=== PATIENT | female | born 1940 | race Caucasian/White ===

== ENCOUNTER 2016-10-08 18:06 | Inpatient (IN) | payer MEDICARE, MEDICAID ==
--- NOTE | 2016-10-08 18:18 | ED Physician Chart ---
Chief Complaint/HPI - Patient Information Date Seen:: 10/08/16 Time Seen:: 18:14 Chief Complaint:: poor feeding History of Present Illness:: pt sent from [facility] for poor feeding x last week and freq complaints of abd pain. no known n/v/d. pt is poor historian due to janes. no know fever. not getting out of bed as much as usual. Historian:: Patient, Medical Records Review:: Transfer documents Reviewed Review of Systems - Review of Systems General/Constitutional: No fever, No chills, No weight loss, No weakness, No diaphoresis, No edema, No loss of appetite, Other (poor historian limits hx ) Skin: No skin lesions, No rash, No bruising Head: No headache, No light-headedness Eyes: No loss of vision, No pain, No diplopia ENT: No earache, No nasal drainage, No sore throat, No tinnitus Neck: No neck pain, No swelling, No thyromegaly, No stiffness, No mass noted Cardio Vascular: No chest pain, No palpitations, No PND, No orthopnea, No edema Pulmonary: No SOB, No cough, No sputum, No wheezing GI: No nausea, No vomiting, No diarrhea, Pain, No melena, No hematochezia, No constipation, No hematemesis G/U: No dysuria, No frequency, No hematuria Musculoskeletal: No bone or joint pain, No back pain, No muscle pain Endocrine: No polyuria, No polydipsia Psychiatric: No prior psych history, No depression, No anxiety, No suicidal ideation Hematopoietic: No bruising, No lymphadenopathy Allergic/Immuno: No urticaria, No angioedema Neurological: No syncope, No focal symptoms, No weakness, No paresthesia, No headache, No seizure, No dizziness, No confusion, No vertigo Past Medical History - Past Medical History Past Medical History: DM, Dementia Social History: Care Facility Psychiatricy History: Dementia (janes mendieta) Medication: Reviewed Family Medical History - Family Member Mother History Unknown: Yes Physical Exam - Physical Examination General/Constitutional: Awake, Well-developed, well-nourished, Alert, No distress, Non-toxic appearing Other Gen/Cons comments:: poor historian. parkinsonian tremor. alert/wn./wh. Head: Atraumatic Eyes: Lids, conjuctiva normal, PERRL, EOMI Skin: Nl inspection, No rash, No skin lesions, No ecchymosis, Well hydrated, No lymphadenopathy ENMT: External ears, nose nl, Nasal exam nl, Lips, teeth, gums nl Neck: Nontender, Full ROM w/o pain, No JVD, No nuchal rigidity, No bruit, No mass, No stridor Respiratory: Nl effort/Exclusion, Clear to Auscultation, No Wheeze/Rhonchi/Rales Cardio Vascular: RRR, No murmur, gallop, rubs, NL S1 S2 GI: No organomegaly, No hernia, Normal BS's, Nondistended, No mass/bruits, No McBurney tenderness Other GI comments:: vague mild lower abd tndrness. pos nabs. no masses : No CVA tenderness Extremities: No tenderness or effusion, Full ROM, normal strength in all extremities, No edema, Normal digits & nails Neuro/Psych: DTR's symmetric, Normal sensory exam, Normal motor strength, Mood normal, Normal gait, No focal deficits Other Neuro/Psych comments:: poor historian, alert. intention tremor Misc: normal gait, Normal back, No paraspinal tenderness Labs/Radiology/EKG Results - Lab Results Results: Laboratory Tests 10/08/16 10/08/16 18:44 18:44 WBC 7.6 RBC 4.41 Hgb 13.7 Hct 39.9 MCV 90.5 MCH 31.1 H MCHC Differential 34.4 RDW 13.9 Plt Count 193 MPV 7.7 Neutrophils % 78.8 Lymphocytes % 11.0 L Monocytes % 8.8 Eosinophils % 0.9 Basophils % 0.5 Sodium 137 Potassium 2.9 L* Chloride 92 L Carbon Dioxide 35.5 H Anion Gap 12.4 BUN 18 Creatinine 0.5 L Est GFR ( Amer) TNP Est GFR (Non-Af Amer) TNP BUN/Creatinine Ratio 36.0 Glucose 165 H Calcium 9.4 Total Bilirubin 0.8 AST 13 ALT 3 L Alkaline Phosphatase 54 Total Protein 6.5 Albumin 3.6 L Globulin 2.9 Albumin/Globulin Ratio 1.2 Lipase 14 - Radiology Results Results: ct abd/p- 9mm cyst ? rt liver 2.4cm rt renal cyst no hydro no free fluid pos diverticulosis asvd l-4 hemangioma ED Septic Shock - . Is Septic Shock (SBP<90, OR Lactate>4 mmol\L) present?: No Reassessment (Disposition) - Reassessment Reassessment:: case DW Dr Soria...will admit for further study - Diagnosis Diagnosis:: abdominal pain poor po intake x 1 week poor nutrition / dehydration low k+ - Patient Disposition Admitted to:: Med/Surg Condition at Disposition:: Stable
[2016-10-08] MEDS ORDERED: Sodium Chloride 0.9% 1,000 ML IV ONE (18:34)
[2016-10-08 19:05] LABS: % BASOPHILS 0.5 % (0.0-2.0); % EOSINOPHILS 0.9 % (0.0-5.0); % MONOCYTES 8.8 % (2.0-10.0); % NEUTROPHILS 78.8 % (40.0-80.0); HEMATOCRIT 39.9 % (35.0-45.0); HEMOGLOBIN 13.7 gm/dL (11.7-16.1); MEAN CELL VOLUME 90.5 fl (81-100); MEAN CORPUSCULAR HEMOGLOBIN 31.1 pg (27.0-31.0); MEAN CORPUSCULAR HGB CONC 34.4 pg (28.0-36.0); MEAN PLATELET VOLUME 7.7 fl; PLATELET COUNT 193 Th/cmm (150-400); RED BLOOD COUNT 4.41 Mil/cmm (3.80-5.20); RED CELL DISTRIBUTION WIDTH 13.9 % (11.5-20.0); WHITE BLOOD COUNT 7.6 Th/cmm (4.8-10.8)
[2016-10-08 19:16] LABS: ALB/GLOB RATIO 1.2 (1.0-1.8); ALKALINE PHOSPHATASE 54 U/L (34-104); ANION GAP 12.4 (7.0-16.0); BILIRUBIN,TOTAL 0.8 mg/dL (0.3-1.0); BUN - UREA NITROGEN 18 mg/dL (7-25); CALCIUM SERUM 9.4 mg/dL (8.6-10.3); CARBON DIOXIDE 35.5 mEq/L (21.0-31.0); CHLORIDE 92 mEq/L (98-107); CREATININE - SERUM 0.5 mg/dL (0.6-1.2); GLUCOSE 165 mg/dL (70-105); LIPASE 14 U/L (11-82); SGOT 13 U/L (13-39); SODIUM SERUM 137 mEq/L (136-145)
[2016-10-08 19:32] LABS: POTASSIUM SERUM 2.9 mEq/L (3.5-5.1); SGPT/ALT 3 U/L (7-52)
[2016-10-08] MEDS ORDERED: Potassium Chloride 40 MEQ, Lidocaine 1% 20mL Vial 25 MG in Sodium Chloride 0.9% 250 ML IV ONE (19:38)
[2016-10-08] MEDS ORDERED: NS W IV ONE (20:10)
[2016-10-08] MEDS ORDERED: KCL IV ONE (20:10)
[2016-10-08] MEDS ORDERED: KCL 20mEq/100mL Premix 40 MEQ/200 ML PIGGYBACK IV ONE (20:20)
--- NOTE | 2016-10-08 22:06 | Admit Criteria Form ---
Admit Criteria Forms - Admit Criteria Diagnosis: ABDOMINAL PAIN Clinical Indications for Admission to Inpatient Care (Place 'X' for any and all applicable criteria): Admission is indicated for ANY ONE of the following(1)(2)(3)(4)(5): [X]I. Inpatient admission required rather than observation care (Also use Abdominal Pain: Observation Care, as appropriate) because of ANY ONE of the following: [ ]a) Severe pain requiring acute inpatient management [ ]b) Identification of etiology/finding that requires inpatient care (eg, aortic dissection, free air) [ ]c) Absent bowel sounds with complete ileus(6) [ ]d) Suspected toxic megacolon [X]e) Severe electrolyte abnormalities requiring inpatient care [ ]f) High fever or infection requiring inpatient admission as indicated by ANY ONE of following(7)(8): [ ] i) Appropriate outpatient or observational care antimicrobial treatment unavailable, not effective, or not feasible [ ] ii) Documented bacteremia [ ] iii) Temperature > 104.9 degrees F (oral) [ ] iv) T >103.1 F (oral) or < 96.8 F(rectal) that does not respond to all emergency treatment measures [ ]g) Signs of intestinal obstruction [B] [ ]h) Hemodynamic instability [ ]i) IV fluid to replace significant ongoing losses (greater than 3 L/m2 per day) (12)(13) [ ]j) Percutaneous or open drainage (eg, abscess, biliary tract ) procedures [ ]k) Parenteral nutrition regimen that must be implemented on inpatient basis [X]l) Other condition,treatment or monitoring requiring inpatient admission. [ ]II. Peritoneal signs present [ ]III. Surgery needed that cannot be performed on an ambulatory basis. [ ]IV. Evaluation requires patient to not eat or drink for extended period ( eg, more than 24 hours). [ ]V. Contraindications and/or Inappropriate clinical situations for Observational Care in patients with abdominal pain, when ANY ONE of the following is required: [ ]a) Thorough evaluation is required to prevent catastrophic events due to delays in diagnosing (e.g.Mesenteric ischemia) 1,3 [ ]b) Patient with severe pathology or with chronic symptoms unlikely to improve in the ED stay (3) [ ]. General contraindications and/or Inappropriate clinical situations for Observational Care in patients with abdominal pain, when ANY ONE of the following is required: [ ]a) Prediction of prolongation of LOS based on ANY ONE of the following may be considered as a contraindication for observational care 2, 3, 4, 5, 6, 7, 8, 9, 10, 11 [ ]i) Age > 65 yrs. [ ]ii) Patient arriving by ambulance [ ]iii) Patient with high acuity [ ]iv) Patient requiring vital sign monitoring [ ]v) Patient on IV medication [ ]b) Systolic blood pressures 180mmHg 3,12 [ ]c) Patient with altered mental status including delirium and other alteration of consciousness, (3) [ ]d) Patient whose discharge disposition will be to a fpc home or rehabilitation home should not be managed in Emergency Department Observation Unit. CMS rule requires 3 days hospital stay before such placement.3,13 [ ]e) Patient with failure to thrive due to broad array of etiologies 3,16,17 [ ]f) Inability to ambulate 3,14 Extended stay beyond goal length of stay may be needed for(2)(3): [ ]a) Persistent abdominal pain with suspected intra-abdominal process [ ]b) Diagnosed condition requiring continued stay (e.g., pancreatitis, complicated diverticulitis) [ ]c) Surgery (e.g., colectomy) The original [employer] content created by [employer] has been revised. The portions of the content which have been revised are identified through the use of italic text or in bold, and [facility] has neither reviewed nor approved the modified material.All other unmodified content is copyright [employer]. Please see references footnoted in the original [facility] edition 2016 Admit Criteria Met?: Yes
[2016-10-09 08:09] LABS: % BASOPHILS 0.4 % (0.0-2.0); % EOSINOPHILS 1.6 % (0.0-5.0); % LYMPHOCYTES 16.5 % (20.0-50.0); % NEUTROPHILS 69.5 % (40.0-80.0); HEMOGLOBIN 12.1 gm/dL (11.7-16.1); MEAN CELL VOLUME 90.6 fl (81-100); MEAN CORPUSCULAR HEMOGLOBIN 31.7 pg (27.0-31.0); MEAN PLATELET VOLUME 7.7 fl; NEUTROPHILE ABSOLUTE 3.9 Th/cmm (1.8-8.0); PLATELET COUNT 179 Th/cmm (150-400); RED BLOOD COUNT 3.81 Mil/cmm (3.80-5.20)
[2016-10-09] MEDS: INSULIN ASPART SLIDING SCALE 100 UNITS/ML UNIT SUBQ SCH ×4 (08:12→21:09)
[2016-10-09 08:21] LABS: HEMATOCRIT 34.5 % (35.0-45.0); WHITE BLOOD COUNT 5.6 Th/cmm (4.8-10.8)
[2016-10-09 08:27] LABS: ALB/GLOB RATIO 1.1 (1.0-1.8); ALKALINE PHOSPHATASE 46 U/L (34-104); ANION GAP 13.7 (7.0-16.0); BILIRUBIN,TOTAL 0.9 mg/dL (0.3-1.0); BUN - UREA NITROGEN 11 mg/dL (7-25); CALCIUM SERUM 8.7 mg/dL (8.6-10.3); CARBON DIOXIDE 33.8 mEq/L (21.0-31.0); CHLORIDE 98 mEq/L (98-107); CHOLESTEROL 144 mg/dL (<200); CREATININE - SERUM 0.5 mg/dL (0.6-1.2); GLUCOSE 96 mg/dL (70-105); POTASSIUM SERUM 3.5 mEq/L (3.5-5.1); SGOT 12 U/L (13-39); SGPT/ALT 7 U/L (7-52); SODIUM SERUM 142 mEq/L (136-145); TRIGLYCERIDES 83 mg/dL (<150)
[2016-10-09] MEDS ORDERED: Hydrocodone/APAP 5mg/325mg Tab PO PRN (09:32)
[2016-10-09] MEDS ORDERED: ACETAMINOPHEN PO PRN (09:32)
[2016-10-09] MEDS: D5-0.45NS 1,000 ML IV SCH (10:17)
--- NOTE | 2016-10-09 11:24 | Diagnostic Imaging Report ---
CT abdomen and pelvis without intravenous contrast Indication: Abdominal pain, decreased oral intake Comparison: None, Technique: Axial images were obtained from the lung bases to the bilateral proximal femurs without IV contrast. Coronal reconstructions were made. total DLP: 425, CTDI9.3 FINDINGS: Exam is limited due to motion. Assessment of the solid organs also limited due to lack of IV contrast. Subcentimeter low-density lesion of the liver is noted, too small to characterize. The patient is status post cholecystectomy. No focal splenic or pancreatic lesions. Left adrenal gland calcification is seen likely due to old inflammatory process. A 2.1 cm right renal cyst is noted. No hydronephrosis or evidence of renal stones. Fluid and gas-filled loops of bowel are seen are nonspecific pattern. Minimal diverticulosis is noted. No diverticulitis. Appendix is not well-visualized. No evidence of free air or free fluid. Diffuse atherosclerosis is noted. A vertebral body hemangioma seen at L4. Degenerative changes of the spine are noted. There is 3 mm anterolisthesis of L4 on L5. IMPRESSION: Gas-filled loops of bowel without evidence of obstruction. Minimal diverticulosis. No diverticulitis. The appendix is not visualized. Evidence of prior cholecystectomy. Moderate atherosclerotic disease. 2.1 cm right renal cyst. 3 mm anterolisthesis of L4 on L5 likely due to facet arthropathy.
--- NOTE | 2016-10-09 11:45 | History & Physical ---
CHIEF COMPLAINT: Poor p.o. intake, failure to thrive. HISTORY OF PRESENT ILLNESS: A 76-year-old lady with history of advanced dementia, Parkinson disease, type 2 diabetes, who presented from [facility] with a few day history of poor p.o. intake. There is also some mention of weight loss, but I cannot verify this through her records. She does state that she has poor p.o. intake, but denies any abdominal pain, nausea or vomiting or reflux symptoms. She has been admitted to the medical/surgical floor for further management and care. PAST MEDICAL HISTORY: As noted above. PAST SURGICAL HISTORY: None reported. FAMILY HISTORY: Likely noncontributory to this admission. SOCIAL HISTORY: Denies any tobacco, ETOH. Lives at [facility] under the care of Dr. Quintero. ALLERGIES: NKDA. OUTPATIENT MEDICATIONS: [place] 5/325 q.6 p.r.n. for severe pain, Sinemet 25/100 b.i.d., Aricept 5 mg every day, Prozac 20 mg b.i.d., insulin sliding scale, Imodium 2 mg q. 6 p.r.n. for GI upset, Ativan 0.5 q. 12 p.r.n. for anxiety, Namenda 5 mg b.i.d., Tylenol 500 mg 2 tabs p.o. q. 6 p.r.n. for severe pain, loperamide 2 mg 2 caps q. 6 p.r.n. for GI upset, melatonin 5 mg 1 tablet at bedtime p.r.n. REVIEW OF SYSTEMS: A good review of systems was not able to be done given her dementia. GENERAL: She does complain of some weakness and tiredness. CARDIAC: No chest pain, denies any angina type symptomatology. PULMONARY: Denies any cough, any phlegm production, any shortness of breath. GASTROINTESTINAL: Denies any abdominal pain, any diarrhea, any nausea or vomiting. She states that she has always been a thin person, but has eaten better in the past. GENITOURINARY: No bladder habit changes including no dysuria or hematuria. NEUROLOGIC: Denies any falls, any syncopal episodes. Musculoskeletal: Chronic lower extremity weakness. PHYSICAL EXAMINATION: VITAL SIGNS: Temperature 97.4, pulse 76, respirations 18, BP 108/59 and satting 95% on room air. GENERAL: A well-developed, thin, elderly female, not in acute distress. She is asleep, but arousable. HEAD AND NECK: Normocephalic, atraumatic. Pupils reactive to light. CARDIAC: Regular rate and rhythm with S1 and S2 present, no audible murmurs. LUNGS: Decreased at the bases, but clear to auscultation. ABDOMEN: Soft, supple, nontender, nondistended, normoactive bowel sounds. EXTREMITIES: On lower extremities, there is no edema, clubbing or cyanosis. NEUROLOGIC: She does have bilateral upper extremity intentional tremors consistent with parkinsonian like tremors. She is able to move all 4 extremities, although there is limited movement of the lower extremities. LABORATORY DATA: CBC was essentially within normal limits and on admission, potassium 2.9, chloride 92, carbon dioxide 35 with a BUN of 18, creatinine 0.5 and glucose 165. LFTs were essentially within normal limits. Albumin 3.6. UA is pending. DIAGNOSTICS: CT scan of the abdomen and pelvis. This is prelim report by ER staff, questionable 9 mm cyst on her right side of the liver. There is a 2.4 cm right renal cyst. There is no hydronephrosis. There is possible diverticulosis. IMPRESSION: 1. Poor p.o. intake/failure to thrive. 2. Malnourishment. 3. Advanced dementia. 4. History of Parkinson's. 5. History of diabetes. 6. Hypokalemia. PLAN: The patient has been admitted to the medical floor, has been placed on IV fluids with D5 half. She has been started on Megace and mirtazapine 30 mg at bedtime. I have asked for ST and dietary eval as well as a 3-day calorie count. The patient will be kept on her medications except for the Glucophage. I will ask also prealbumin level. JOB# [id number] HANS
[2016-10-09] MEDS ORDERED: Acetaminophen 500 MG TAB PO PRN (11:49)
[2016-10-09] MEDS ORDERED: Venelex 60gm Tube TP SCH (14:45)
[2016-10-09] MEDS ORDERED: Non-Formulary Item 1 EA (Melatonin [Melatonin] 5 MG) PO SCH (21:00)
[2016-10-10] MEDS: D5-0.45NS 1,000 ML IV SCH (06:32)
[2016-10-10 06:38] LABS: % BASOPHILS 0.1 % (0.0-2.0); % EOSINOPHILS 1.6 % (0.0-5.0); % LYMPHOCYTES 15.6 % (20.0-50.0); % MONOCYTES 10.1 % (2.0-10.0); % NEUTROPHILS 72.6 % (40.0-80.0); HEMOGLOBIN 12.8 gm/dL (11.7-16.1); MEAN CELL VOLUME 90.9 fl (81-100); MEAN CORPUSCULAR HEMOGLOBIN 31.4 pg (27.0-31.0); MEAN CORPUSCULAR HGB CONC 34.5 pg (28.0-36.0); MEAN PLATELET VOLUME 8.1 fl; PLATELET COUNT 194 Th/cmm (150-400); RED BLOOD COUNT 4.07 Mil/cmm (3.80-5.20); RED CELL DISTRIBUTION WIDTH 13.7 % (11.5-20.0); WHITE BLOOD COUNT 5.6 Th/cmm (4.8-10.8)
[2016-10-10] MEDS: INSULIN ASPART SLIDING SCALE 100 UNITS/ML UNIT SUBQ SCH ×2 (06:42→11:46)
[2016-10-10 06:49] LABS: ALB/GLOB RATIO 1.1 (1.0-1.8); ALKALINE PHOSPHATASE 47 U/L (34-104); ANION GAP 9.1 (7.0-16.0); BILIRUBIN,TOTAL 0.5 mg/dL (0.3-1.0); BUN - UREA NITROGEN 10 mg/dL (7-25); CALCIUM SERUM 8.9 mg/dL (8.6-10.3); CARBON DIOXIDE 33.3 mEq/L (21.0-31.0); CHLORIDE 104 mEq/L (98-107); CREATININE - SERUM 0.5 mg/dL (0.6-1.2); GLUCOSE 157 mg/dL (70-105); POTASSIUM SERUM 3.4 mEq/L (3.5-5.1); SGOT 12 U/L (13-39); SGPT/ALT 8 U/L (7-52); SODIUM SERUM 143 mEq/L (136-145)
[2016-10-10] MEDS ORDERED: Potassium Chloride 20 mEq ER Tab PO ONE (09:26)
--- NOTE | 2016-10-10 19:39 | Discharge Summary ---
ADMITTING DIAGNOSES: 1. Failure to thrive. 2. Poor oral intake. SECONDARY DIAGNOSES: Include: 1. Advanced dementia. 2. Parkinson's disease. 3. Type 2 diabetes. DISCHARGE DIAGNOSES: 1. Failure to thrive. 2. Poor oral intake/improvement. 2. Minimal diverticulosis. CONSULTANTS: There were no consultants done during this admission. PROCEDURES: There was an abdominal and pelvic CT done on 10/08/2016 showing gas-filled loops of bowel with evidence of obstruction, minimal diverticulosis, no diverticulitis. BRIEF HOSPITAL COURSE: This is a 76-year-old female who presented from [facility] with poor p.o. intake and failure to thrive. There was no record of weight loss, but the patient did state that she has had poor p.o. intake for a few days, perhaps weeks. She has, as mentioned above, history of advanced dementia and Parkinson's, but denied any abdominal pain, nausea, vomiting, any previous history of gastritis. The patient was placed on mirtazapine and Megace and was given supportive IV fluid. She underwent an ST who suggested a mechanical soft diet and she was also seen by dietary, who suggested 1800 ADA with 2 g of sodium. Initially, she had 20% p.o. intake, but for the last couple of meals, she had 70%. She has remained stable, afebrile with normal labs. MEDICATIONS ON DISCHARGE: Tylenol 500 mg as needed for mild fever and pain, [place] 5/325 1 tab every 6 hours as needed for severe pain, Sinemet 25/100 twice a day, Aricept 5 mg every day, Prozac 20 mg twice a day, insulin sliding scale per protocol, Imodium 2 mg every 6 hours as needed for GI upset, lorazepam 0.5 every 12 hours as needed for anxiety, Megace 40 mg twice a day, Namenda 5 mg twice a day and Remeron 30 mg twice a day. CONDITION ON DISCHARGE: Stable. DISPOSITION: The patient was discharged back to [facility] under the care of Dr. Quintero. JOB# [id number] [facility]
== END 2016-10-10 17:20 | DRG 641 ==
LOC: ER 18:06 → MSI 21:30
PROVIDERS: ADMIT Internal Medicine; ATTEND Internal Medicine
DX: E86.0 Dehydration (principal); G20 Parkinson's disease; E44.1 Mild protein-calorie malnutrition; G30.9 Alzheimer's disease, unspecified; F02.80 Dementia in other diseases classified elsewhere, unspecified severity, without behavioral disturbance, psychotic disturbance, mood disturbance, and anxiety; R62.7 Adult failure to thrive; E11.9 Type 2 diabetes mellitus without complications; E87.6 Hypokalemia; K57.90 Diverticulosis of intestine, part unspecified, without perforation or abscess without bleeding; Z68.21 Body mass index [BMI] 21.0-21.9, adult
CPT/HCPCS: 36415-UA; 80053-TC; 80061-TC; 82948-90; 83036-90; 83690-TC; 83735-TC; 84134-90; 84443-TC; 85025-TC; J1815; J2001; J3480; J7030; X3401; Z7610

== ENCOUNTER 2016-10-24 15:01 | Inpatient (IN) | payer MEDICARE, MEDICAID ==
--- NOTE | 2016-10-24 17:17 | ED Physician Chart ---
Chief Complaint/HPI - Patient Information Date Seen:: 10/24/16 Time Seen:: 17:07 Chief Complaint:: SACRAL ULCERATION AND LOWER ABDOMINAL PAIN/ History of Present Illness:: PT IS DEMENTED AND UNABLE TO PROVIDE HISTORY. PT'S DAUGHTER SAID SHE HAS BEEN WEAK AND NOT EATING FOR THE PAST 2 WEEKS AND DIDN'T EAT AT ALL YEASTERDAY. PT HAS SACRAL ULCER THAT IS VERY FOUL SMELLING AND IS COMPLAINING OF ABD PAIN IN THE LLQ AND RLQ. NO VOMITINFG OR DAIRRHEA FOR THE PAST WEEK BUT DID HAVE SOME THE TIME OF HER LAST ADMISSION ON OCT 08, 2016. Allergies:: Allergies Allergy/AdvReac Type Severity Reaction Status Date / Time No Known Allergies Allergy Verified 10/08/16 18:23 Vitals:: Vital Signs - 8 hr 10/24/16 15:14 Temp 97.7 F HR 112 RR 18 BP 142/68 O2 Sat % 93 <Blaine Navarro - Last Filed: 10/24/16 17:06> - Patient Information Allergies:: Allergies Allergy/AdvReac Type Severity Reaction Status Date / Time No Known Allergies Allergy Verified 10/08/16 18:23 Vitals:: Vital Signs - 8 hr 10/24/16 15:14 Temp 97.7 F HR 112 RR 18 BP 142/68 O2 Sat % 93 Historian:: Family Member, Medical Records Review:: Nurse's Note Reviewed <Tye Schwartz - Last Filed: 10/24/16 23:48> Review of Systems - Review of Systems General/Constitutional: Other (THIS PATIENT IS UNABLE TO GIVE A REVIEW OF SYSTEMS.) Skin: Skin lesions, No rash, No bruising Head: No headache, No light-headedness Eyes: No loss of vision, No pain, No diplopia ENT: No earache, No nasal drainage, No sore throat, No tinnitus Neck: No neck pain, No swelling, No thyromegaly, No stiffness, No mass noted Cardio Vascular: No chest pain, No palpitations, No PND, No orthopnea, No edema Pulmonary: No SOB, No cough, No sputum, No wheezing GI: No nausea, No vomiting, No diarrhea, No pain, No melena, No hematochezia, No constipation, No hematemesis G/U: No dysuria, No frequency, No hematuria Musculoskeletal: No bone or joint pain, No back pain, No muscle pain Endocrine: No polyuria, No polydipsia Psychiatric: No prior psych history, No depression, No anxiety, No suicidal ideation Hematopoietic: No bruising, No lymphadenopathy Allergic/Immuno: No urticaria, No angioedema Neurological: No syncope, No focal symptoms, No weakness, No paresthesia, No headache, No seizure, No dizziness, No confusion, No vertigo <Tye Schwartz - Last Filed: 10/24/16 23:48> Past Medical History - Past Medical History Obtainable: Yes Past Medical History: DM, Dementia Family History: None Social History: Non Smoker, No Alcohol, No Drug Use, Care Facility Surgical History: None Psychiatricy History: Depression, Dementia Medication: Reviewed <EfrenTye - Last Filed: 10/24/16 23:48> Family Medical History - Family Member Mother History Unknown: Yes Ethnicity: Non- Living Status: <NavarroBlaine L. - Last Filed: 10/24/16 17:06> Physical Exam - Physical Examination General/Constitutional: Awake, Well-developed, well-nourished, Alert, No distress, GCS 15, Non-toxic appearing, Ambulatory Other Gen/Cons comments:: THE PATIENT HAS A GENERALIZED RESTING TREMOR (parkinson's) she is unable to speak Head: Atraumatic Eyes: Lids, conjuctiva normal, PERRL, EOMI Skin: Nl inspection, No rash, No skin lesions, No ecchymosis, Well hydrated, No lymphadenopathy ENMT: External ears, nose nl, Nasal exam nl, Lips, teeth, gums nl Neck: Nontender, Full ROM w/o pain, No JVD, No nuchal rigidity, No bruit, No mass, No stridor Respiratory: Nl effort/Exclusion, Clear to Auscultation, No Wheeze/Rhonchi/Rales Cardio Vascular: RRR, No murmur, gallop, rubs, NL S1 S2 GI: No tenderness/rebounding/guarding, No organomegaly, No hernia, Normal BS's, Nondistended, No mass/bruits, No McBurney tenderness : No CVA tenderness Extremities: No tenderness or effusion, Full ROM, normal strength in all extremities, No edema, Normal digits & nails Neuro/Psych: Alert/oriented, DTR's symmetric, Normal sensory exam, Normal motor strength, Judgement/insight normal, Mood normal (depressed mood), Normal gait, No focal deficits Other Neuro/Psych comments:: resting tremor Misc: normal gait, Normal back, No paraspinal tenderness <Tye Schwartz - Last Filed: 10/24/16 23:48> Labs/Radiology/EKG Results - Lab Results Results: Laboratory Tests 10/24/16 19:45 WBC 11.1 H D RBC 4.07 Hgb 12.5 Hct 36.6 MCV 89.9 MCH 30.7 MCHC Differential 34.1 RDW 13.6 Plt Count 263 D MPV 7.1 Neutrophils % 86.0 H Lymphocytes % 7.3 L Monocytes % 5.9 Eosinophils % 0.6 Basophils % 0.2 Abnormal Lab Results 10/24/16 10/24/16 10/24/16 19:45 19:45 19:45 WBC 11.1 H D RBC 4.07 Hgb 12.5 Hct 36.6 MCV 89.9 MCH 30.7 MCHC Differential 34.1 RDW 13.6 Plt Count 263 D MPV 7.1 Neutrophils % 86.0 H Lymphocytes % 7.3 L Monocytes % 5.9 Eosinophils % 0.6 Basophils % 0.2 Sodium 131 L Potassium 3.4 L Chloride 99 Carbon Dioxide 28.3 Anion Gap 7.1 BUN 17 Creatinine 0.4 L Est GFR ( Amer) TNP Est GFR (Non-Af Amer) TNP BUN/Creatinine Ratio 42.5 Glucose 163 H Calcium 8.9 Total Bilirubin 0.9 AST 65 H ALT 40 Alkaline Phosphatase 80 Troponin I 0.01 Total Protein 6.6 Albumin 3.1 L Globulin 3.5 Albumin/Globulin Ratio 0.9 L Urine Source Urine Color Urine Clarity Urine pH Ur Specific [place] Urine Protein Urine Glucose (UA) Urine Ketones Urine Blood Urine Nitrate Urine Bilirubin Urine Urobilinogen Ur Leukocyte Esterase Urine RBC Urine WBC Ur Epithelial Cells Urine Bacteria 10/24/16 20:49 WBC RBC Hgb Hct MCV MCH MCHC Differential RDW Plt Count MPV Neutrophils % Lymphocytes % Monocytes % Eosinophils % Basophils % Sodium Potassium Chloride Carbon Dioxide Anion Gap BUN Creatinine Est GFR ( Amer) Est GFR (Non-Af Amer) BUN/Creatinine Ratio Glucose Calcium Total Bilirubin AST ALT Alkaline Phosphatase Troponin I Total Protein Albumin Globulin Albumin/Globulin Ratio Urine Source CLEAN C Urine Color LILLIE Urine Clarity CLOUDY H Urine pH 5.5 Ur Specific [place] 1.025 Urine Protein 30 H Urine Glucose (UA) NEGATIVE Urine Ketones 15 H Urine Blood MODERATE H Urine Nitrate POSITIVE H Urine Bilirubin SMALL H Urine Urobilinogen 2.0 Ur Leukocyte Esterase SMALL H Urine RBC 10-25 H Urine WBC 6-10 H Ur Epithelial Cells MODERATE Urine Bacteria MANY - Radiology Results Results: chest x-ray = nad - EKG Interpretations EKG Time:: 19:36 Rhythm: sinus tachycardia [place]: right Rate: 106 <Tye Schwartz - Last Filed: 10/24/16 23:48> ED Septic Shock - <6hrs of presentation: Vital Signs: Vital Signs - 8 hr 10/24/16 15:14 Temp 97.7 F HR 112 RR 18 BP 142/68 O2 Sat % 93 <Blaine Navarro - Last Filed: 10/24/16 17:06> - . Is Septic Shock (SBP<90, OR Lactate>4 mmol\L) present?: No - <6hrs of presentation: Vital Signs: Vital Signs - 8 hr 10/24/16 15:14 Temp 97.7 F HR 112 RR 18 BP 142/68 O2 Sat % 93 <Tye Schwartz - Last Filed: 10/24/16 23:48> Reassessment (Disposition) - Reassessment Reassessment Condition:: Unchanged - Diagnosis Diagnosis:: urinary tract infection weakness coccyx sores fever - Patient Disposition Discharge/Transfer:: Acute Care w/in this hosp Admitted to:: Med/Surg Admitting Medical Physician:: Lavon Soria Condition at Disposition:: Unchanged <Tye Schwartz - Last Filed: 10/24/16 23:48> ED Discharge Plan <Blaine Navarro - Last Filed: 10/24/16 17:06> <Tye Schwartz - Last Filed: 10/24/16 23:48> - Patient Disposition Admit/Discharge/Transfer: Acute Care w/in this hosp Condition at Disposition: Unchanged
[2016-10-24 19:54] LABS: % BASOPHILS 0.2 % (0.0-2.0); % EOSINOPHILS 0.6 % (0.0-5.0); % LYMPHOCYTES 7.3 % (20.0-50.0); % MONOCYTES 5.9 % (2.0-10.0); HEMATOCRIT 36.6 % (35.0-45.0); HEMOGLOBIN 12.5 gm/dL (11.7-16.1); MEAN CELL VOLUME 89.9 fl (81-100); MEAN CORPUSCULAR HEMOGLOBIN 30.7 pg (27.0-31.0); MEAN CORPUSCULAR HGB CONC 34.1 pg (28.0-36.0); MEAN PLATELET VOLUME 7.1 fl; NEUTROPHILE ABSOLUTE 9.5 Th/cmm (1.8-8.0); RED BLOOD COUNT 4.07 Mil/cmm (3.80-5.20); RED CELL DISTRIBUTION WIDTH 13.6 % (11.5-20.0)
[2016-10-24 19:57] LABS: PLATELET COUNT 263 Th/cmm (150-400); WHITE BLOOD COUNT 11.1 Th/cmm (4.8-10.8)
[2016-10-24 20:16] LABS: ALB/GLOB RATIO 0.9 (1.0-1.8); ALKALINE PHOSPHATASE 80 U/L (34-104); ANION GAP 7.1 (7.0-16.0); BILIRUBIN,TOTAL 0.9 mg/dL (0.3-1.0); BUN - UREA NITROGEN 17 mg/dL (7-25); BUN/CREATININE RATIO 42.5; CALCIUM SERUM 8.9 mg/dL (8.6-10.3); CARBON DIOXIDE 28.3 mEq/L (21.0-31.0); CHLORIDE 99 mEq/L (98-107); CREATININE - SERUM 0.4 mg/dL (0.6-1.2); GLUCOSE 163 mg/dL (70-105); POTASSIUM SERUM 3.4 mEq/L (3.5-5.1); SGOT 65 U/L (13-39); SGPT/ALT 40 U/L (7-52); SODIUM SERUM 131 mEq/L (136-145)
[2016-10-24 22:05] LABS: URINE BILIRUBIN SMALL (NEGATIVE); URINE BLOOD MODERATE (NEGATIVE); URINE COLOR AMBER; URINE GLUCOSE (UA) NEGATIVE (NEGATIVE); URINE KETONE 15 mg/dL (NEGATIVE); URINE PH 5.5; URINE PROTEIN 30 mg/dL (NEGATIVE)
[2016-10-24 22:08] LABS: URINE BACTERIA MANY /hpf (NONE SEEN); URINE EPITHELIAL CELLS MODERATE /lpf (FEW)
[2016-10-25] MEDS ORDERED: D5-0.45NS 1,000 ML IV SCH (01:47)
[2016-10-25 03:33] VITALS: BP 112/59
[2016-10-25 05:28] LABS: HEMATOCRIT 38.4 % (35.0-45.0); HEMOGLOBIN 12.8 gm/dL (11.7-16.1); MEAN CELL VOLUME 90.7 fl (81-100); MEAN CORPUSCULAR HEMOGLOBIN 30.2 pg (27.0-31.0); MEAN CORPUSCULAR HGB CONC 33.3 pg (28.0-36.0); MEAN PLATELET VOLUME 7.6 fl; PLATELET COUNT 258 Th/cmm (150-400); RED BLOOD COUNT 4.23 Mil/cmm (3.80-5.20); RED CELL DISTRIBUTION WIDTH 13.8 % (11.5-20.0); WHITE BLOOD COUNT 9.6 Th/cmm (4.8-10.8)
[2016-10-25 05:43] LABS: ALB/GLOB RATIO 0.8 (1.0-1.8); ALKALINE PHOSPHATASE 79 U/L (34-104); ANION GAP 8.1 (7.0-16.0); BILIRUBIN,TOTAL 0.7 mg/dL (0.3-1.0); BUN - UREA NITROGEN 20 mg/dL (7-25); CARBON DIOXIDE 34.1 mEq/L (21.0-31.0); CHLORIDE 97 mEq/L (98-107); CREATININE - SERUM 0.5 mg/dL (0.6-1.2); GLUCOSE 179 mg/dL (70-105); MAGNESIUM 2.1 mg/dL (1.9-2.7); POTASSIUM SERUM 3.2 mEq/L (3.5-5.1); SGOT 43 U/L (13-39); SGPT/ALT 38 U/L (7-52); SODIUM SERUM 136 mEq/L (136-145)
[2016-10-25] MEDS ORDERED: INSULIN ASPART SLIDING SCALE 100 UNITS/ML UNIT SUBQ SCH (06:00)
[2016-10-25] MEDS: INSULIN ASPART SLIDING SCALE 100 UNITS/ML UNIT SUBQ SCH ×4 (06:32→21:06)
[2016-10-25 07:57] LABS: BAND NEUTROPHILE 4 % (0-10); BASOPHIL 1 % (0-3); EOSINOPHIL 3 % (0-5); NEUTROPHILS 84 % (40-80); TOTAL CELLS COUNTED 100
[2016-10-25 07:58] LABS: PLATELET ESTIMATE ADEQUATE (NORMAL); PLATELET MORPHOLOGY NORMAL (NORMAL)
[2016-10-25] MEDS: Acetaminophen 500 MG TAB PO PRN (10:16)
--- NOTE | 2016-10-25 10:29 | Diagnostic Imaging Report ---
INDICATION: Shortness of breath and chest pain FINDINGS: Heart size is enlarged..Aorta tortuous.. There are no infiltrates or effusions. Internal fixation plate over the right clavicle. IMPRESSION: Cardiomegaly .. No acute cardiopulmonary pathology.
[2016-10-25] MEDS ORDERED: Potassium Chloride 40 MEQ, Lidocaine 1% 20mL Vial 25 MG in Sodium Chloride 0.9% 250 ML IV ONE (12:22)
--- NOTE | 2016-10-25 14:46 | Admit Criteria Form ---
Admit Criteria Forms - Admit Criteria Diagnosis: URINARY COMPLICATIONS Clinical Indications for Inpatient Care (Place 'X' for any and all applicable criteria): Ongoing inpatient care may be indicated for urinary complications with ANY ONE of the following: [X ]I. Urinary tract infection requiring inpatient care as indicated by ANY ONE of the following(8)(19)(20): [ ]a) Severe symptoms (eg, high fever, severe pain) [ ]b) Vomiting or dehydration requiring ongoing inpatient care [X ]c) IV antibiotic needs that cannot be managed at lower level of care [ ]d) Hemodynamic instability [ ]e) Obstruction of collecting system by stone or tumor [ ]II. Urinary retention requiring drainage or surgery (3)(4)(5)(17)(18) [ ]III. Renal failure (Use Renal Failure Criteria for further information.) [ ]IV. Oliguria(30) [ ]V. Post obstructive diuresis requiring close monitoring of urine output and intravenous compensation for excessive fluid losses(33) Extended stay beyond goal length of stay for primary condition may be needed until ALL of the following are present(3)(4)(5)(8): [ ]a) Renal function (creatinine) at baseline, or daily decreases in creatinine consistent with renal function return [ ]b) Voiding adequately or with urinary catheter or percutaneous suprapubic tube and management regimen in place that is performable at lower level of care. [ ]c) Urine output adequate [ ]d) Fever absent or resolving [ ]e) Infection absent or treatable at next level of care The original [employer] content created by [employer] has been revised. The portions of the content which have been revised are identified through the use of italic text or in bold, and [facility] has neither reviewed nor approved the modified material. All other unmodified content is copyright [facility] Please see references footnoted in the original [facility] edition 2016 Admit Criteria Met?: Yes
[2016-10-25] MEDS: Hydrocodone/APAP 5mg/325mg Tab PO PRN (14:48)
--- NOTE | 2016-10-25 17:41 | History & Physical Pre-OP ---
CHIEF COMPLAINT: Lower back pain, urine incontinence, and abdominal pain. HISTORY OF PRESENT ILLNESS: This is a 76-year-old lady with history of advanced dementia, Parkinson's, and type 2 diabetes, who was admitted roughly about a month ago for poor p.o. intake and brought in from [facility] and given 2-week history of worsening sacral pain/ulcer and more consistent urinary incontinence. The patient apparently also has not been eating well over the last couple of weeks as well. There are also reports of foul smell coming from the ulcer, but at this time, the patient denies any fever, chills, or any other GI symptomatology such as nausea, vomiting, or diarrhea. PAST MEDICAL HISTORY: As noted above. PAST SURGICAL HISTORY: None reported. FAMILY HISTORY: Noncontributory. SOCIAL HISTORY: No tobacco, ETOH, or illicit drug usage. Lives at [facility]. ALLERGIES: NKDA. OUTPATIENT MEDICATIONS: Tylenol 500 mg q. 6 p.r.n. for pain, carbidopa/levodopa 25/100 b.i.d., Aricept 5 every day, Prozac 20 b.i.d., [place] 5/325 q.6h. p.r.n. for severe pain, loperamide 2 mg q.6h., lorazepam 0.5 q.12h. p.r.n., Megace 40 mg b.i.d., melatonin 5 mg at bedtime, Namenda 5 mg every day, and mirtazapine 30 mg at bedtime. REVIEW OF SYSTEMS: CONSTITUTIONAL: No fever or chills. CARDIAC: No chest pain or palpitations. PULMONARY: No cough or phlegm production. GASTROINTESTINAL: Abdominal discomfort with no reports of nausea, vomiting, or diarrhea. GENITOURINARY: Urinary incontinence and dysuria. No hematuria is reported. NEUROLOGIC: No changes in vision, no Pablo's. Chronic tremors, but no syncope. PHYSICAL EXAMINATION: VITAL SIGNS: Temperature 97.6, T-max 100.1, pulse 84, respirations 17, blood pressure 91/56, and satting 96% on room air. GENERAL: Well developed, well nourished, lying in bed, able to answer questions appropriately. HEAD AND NECK: Normocephalic and atraumatic. Pupils are reactive to light. CARDIOVASCULAR: Regular rate and rhythm without any murmurs. LUNGS: Clear to auscultation bilaterally. ABDOMEN: Soft, supple, nontender, and nondistended. EXTREMITIES: There is a Carnes in place on the back. There is redness around the coccyx area. There is a small ulcer and with some drainage noted. NEUROLOGIC: Cranial nerves 2-12 appear to be within normal limits. She has got tremors on both upper extremities. Rest of the exam was difficult to assess given her condition. LABORATORY DATA: On admission, white count 11.1, rest of CBC was within normal limits. Sodium 131, potassium 3.4, BUN 17, creatinine 0.4, and glucose 163. LFTs were essentially within normal limits. Albumin is 3.1. UA was consistent with UTI. IMPRESSION: 1. Infected decubitus ulcer, likely stage I. 2. Urinary tract infection. 3. Urinary incontinence. 4. Leukocytosis. 5. History of diabetes. 6. History of Parkinson. 7. History of dementia. PLAN: The patient has been admitted to the medical floor for further management and care. She has been placed on IV fluids and IV antibiotics, namely Rocephin 1 g q.24h. She also has been pancultured including blood cultures. We will await urine C and S. A wound care eval also will be asked for and also wound cultures have been obtained. Daily labs will be done. JOB# [id number] HANS
[2016-10-25] MEDS: cefTRIAXone 1 GM in Sodium Chloride 0.9% 100 ML IV SCH (20:49)
[2016-10-25] MEDS ORDERED: Non-Formulary Item 1 EA (Melatonin [Melatonin] 5 MG) PO SCH (21:00)
[2016-10-26] MEDS: Acetaminophen 500 MG TAB PO PRN ×3 (05:16→21:29)
[2016-10-26 06:01] LABS: HEMATOCRIT 34.8 % (35.0-45.0); HEMOGLOBIN 12.2 gm/dL (11.7-16.1); MEAN CORPUSCULAR HEMOGLOBIN 30.8 pg (27.0-31.0); PLATELET COUNT 277 Th/cmm (150-400); RED BLOOD COUNT 3.95 Mil/cmm (3.80-5.20); RED CELL DISTRIBUTION WIDTH 13.8 % (11.5-20.0)
[2016-10-26 06:04] LABS: WHITE BLOOD COUNT 7.4 Th/cmm (4.8-10.8)
[2016-10-26 06:20] LABS: ANION GAP 9.3 (7.0-16.0); BUN - UREA NITROGEN 18 mg/dL (7-25); CALCIUM SERUM 8.9 mg/dL (8.6-10.3); CARBON DIOXIDE 29.1 mEq/L (21.0-31.0); CHLORIDE 102 mEq/L (98-107); CREATININE - SERUM 0.4 mg/dL (0.6-1.2); GLUCOSE 112 mg/dL (70-105); POTASSIUM SERUM 3.4 mEq/L (3.5-5.1); SODIUM SERUM 137 mEq/L (136-145)
[2016-10-26] MEDS: Hydrocodone/APAP 5mg/325mg Tab PO PRN (08:34)
[2016-10-26] MEDS: INSULIN ASPART SLIDING SCALE 100 UNITS/ML UNIT SUBQ SCH ×4 (08:58→21:24)
[2016-10-26 09:20] LABS: BAND NEUTROPHILE 3 % (0-10); EOSINOPHIL 2 % (0-5); NEUTROPHILS 84 % (40-80); TOTAL CELLS COUNTED 100
[2016-10-26 09:21] LABS: PLATELET ESTIMATE ADEQUATE (NORMAL); PLATELET MORPHOLOGY NORMAL (NORMAL)
[2016-10-26] MEDS ORDERED: Potassium Chloride 20 mEq ER Tab PO ONE (14:24)
[2016-10-26] MEDS: cefTRIAXone 1 GM in Sodium Chloride 0.9% 100 ML IV SCH (21:25)
[2016-10-27] MEDS: INSULIN ASPART SLIDING SCALE 100 UNITS/ML UNIT SUBQ SCH ×4 (06:33→21:11)
[2016-10-27 06:59] LABS: MEAN CELL VOLUME 89.7 fl (81-100); MEAN CORPUSCULAR HEMOGLOBIN 30.7 pg (27.0-31.0); MEAN CORPUSCULAR HGB CONC 34.2 pg (28.0-36.0); MEAN PLATELET VOLUME 7.7 fl; PLATELET COUNT 282 Th/cmm (150-400); RED CELL DISTRIBUTION WIDTH 13.7 % (11.5-20.0); WHITE BLOOD COUNT 7.3 Th/cmm (4.8-10.8)
[2016-10-27 07:25] LABS: ANION GAP 8.9 (7.0-16.0); BUN - UREA NITROGEN 11 mg/dL (7-25); BUN/CREATININE RATIO 36.7; CALCIUM SERUM 8.3 mg/dL (8.6-10.3); CARBON DIOXIDE 25.2 mEq/L (21.0-31.0); CHLORIDE 103 mEq/L (98-107); CREATININE - SERUM 0.3 mg/dL (0.6-1.2); GLUCOSE 133 mg/dL (70-105); MAGNESIUM 1.8 mg/dL (1.9-2.7); POTASSIUM SERUM 4.1 mEq/L (3.5-5.1); SODIUM SERUM 133 mEq/L (136-145)
[2016-10-27] MEDS: Acetaminophen 500 MG TAB PO PRN (08:41)
[2016-10-27 10:05] LABS: BAND NEUTROPHILE 1 % (0-10); EOSINOPHIL 1 % (0-5); NEUTROPHILS 86 % (40-80); PLATELET ESTIMATE ADEQUATE (NORMAL); PLATELET MORPHOLOGY NORMAL (NORMAL); TOTAL CELLS COUNTED 100
[2016-10-27] MEDS: Hydrocodone/APAP 5mg/325mg Tab PO PRN (13:12)
--- NOTE | 2016-10-27 17:48 | General Progress Note ---
Subjective - Review of Systems Service Date: 10/27/16 Events since last encounter: has stage 4 sacral decubitus ulcer present for several weeks pt is bedridden, has dementia incontinent of urine and stools discussed informed consent with daughter who agrees to: 1. diverting colostomy 2. debridement of ulcer 3. wound vac application risks with and without surgery discussed Objective - Results Result Diagrams: 10/27/16 05:47 10/27/16 05:47 Recent Labs: Laboratory Last Values WBC 7.3 Th/cmm (4.8-10.8) 10/27/16 05:47 RBC 3.90 Mil/cmm (3.80-5.20) 10/27/16 05:47 Hgb 12.0 gm/dL (11.7-16.1) 10/27/16 05:47 Hct 35.0 % (35.0-45.0) 10/27/16 05:47 MCV 89.7 fl (81-100) 10/27/16 05:47 MCH 30.7 pg (27.0-31.0) 10/27/16 05:47 MCHC Differential 34.2 pg (28.0-36.0) 10/27/16 05:47 RDW 13.7 % (11.5-20.0) 10/27/16 05:47 Plt Count 282 Th/cmm (150-400) 10/27/16 05:47 MPV 7.7 fl 10/27/16 05:47 Neutrophils % 86.0 % (40.0-80.0) H 10/24/16 19:45 Band Neutrophils % 1 % (0-10) 10/27/16 05:47 Lymphocytes % 7.3 % (20.0-50.0) L 10/24/16 19:45 Monocytes % 5.9 % (2.0-10.0) 10/24/16 19:45 Eosinophils % 0.6 % (0.0-5.0) 10/24/16 19:45 Basophils % 0.2 % (0.0-2.0) 10/24/16 19:45 Neutrophils (Manual) 86 % (40-80) H 10/27/16 05:47 Lymphocytes 8 % (20-50) L 10/27/16 05:47 Monocytes 4 % (2-10) 10/27/16 05:47 Eosinophils 1 % (0-5) 10/27/16 05:47 Basophils 1 % (0-3) 10/25/16 05:07 Platelet Estimate ADEQUATE (NORMAL) 10/27/16 05:47 Platelet Morphology NORMAL (NORMAL) 10/27/16 05:47 RBC Morph Micro Appear NORMAL (NORMAL) 10/27/16 05:47 Sodium 133 mEq/L (136-145) L 10/27/16 05:47 Potassium 4.1 mEq/L (3.5-5.1) 10/27/16 05:47 Chloride 103 mEq/L (98-107) 10/27/16 05:47 Carbon Dioxide 25.2 mEq/L (21.0-31.0) 10/27/16 05:47 Anion Gap 8.9 (7.0-16.0) 10/27/16 05:47 BUN 11 mg/dL (7-25) 10/27/16 05:47 Creatinine 0.3 mg/dL (0.6-1.2) L 10/27/16 05:47 Est GFR ( Amer) TNP 10/27/16 05:47 Est GFR (Non-Af Amer) TNP 10/27/16 05:47 BUN/Creatinine Ratio 36.7 10/27/16 05:47 Glucose 133 mg/dL (70-105) H 10/27/16 05:47 POC Glucose 126 MG/DL (70 - 105) H 10/27/16 12:09 Hemoglobin A1c % 6.9 % (4.0-6.0) H 10/26/16 05:10 Calcium 8.3 mg/dL (8.6-10.3) L 10/27/16 05:47 Magnesium 1.8 mg/dL (1.9-2.7) L 10/27/16 05:47 Total Bilirubin 0.7 mg/dL (0.3-1.0) 10/25/16 05:07 AST 43 U/L (13-39) H 10/25/16 05:07 ALT 38 U/L (7-52) 10/25/16 05:07 Alkaline Phosphatase 79 U/L (34-104) 10/25/16 05:07 Troponin I 0.01 ng/mL (0.01-0.05) 10/24/16 19:45 Total Protein 6.6 gm/dL (6.0-8.3) 10/25/16 05:07 Albumin 3.0 gm/dL (3.7-5.3) L 10/25/16 05:07 Globulin 3.6 gm/dL 10/25/16 05:07 Albumin/Globulin Ratio 0.8 (1.0-1.8) L 10/25/16 05:07 TSH 1.78 uIU/ml (0.34-5.60) 10/25/16 05:07 Urine Source CLEAN C 10/24/16 20:49 Urine Color LILLIE 10/24/16 20:49 Urine Clarity CLOUDY (CLEAR) H 10/24/16 20:49 Urine pH 5.5 10/24/16 20:49 Ur Specific [place] 1.025 (1.005-1.030) 10/24/16 20:49 Urine Protein 30 mg/dL (NEGATIVE) H 10/24/16 20:49 Urine Glucose (UA) NEGATIVE mg/dL (NEGATIVE) 10/24/16 20:49 Urine Ketones 15 mg/dL (NEGATIVE) H 10/24/16 20:49 Urine Blood MODERATE (NEGATIVE) H 10/24/16 20:49 Urine Nitrate POSITIVE (NEGATIVE) H 10/24/16 20:49 Urine Bilirubin SMALL (NEGATIVE) H 10/24/16 20:49 Urine Urobilinogen 2.0 E.U./dL (0.2 - 1.0) 10/24/16 20:49 Ur Leukocyte Esterase SMALL (NEGATIVE) H 10/24/16 20:49 Urine RBC 10-25 /hpf (0-5) H 10/24/16 20:49 Urine WBC 6-10 /hpf (0-5) H 10/24/16 20:49 Ur Epithelial Cells MODERATE /lpf (FEW) 10/24/16 20:49 Urine Bacteria MANY /hpf (NONE SEEN) 10/24/16 20:49 - Physical Exam Vitals and I&O: Vital Signs Temp 99.8 F 10/27/16 08:24 Pulse 92 10/27/16 08:24 Resp 19 10/27/16 08:24 BP 126/76 10/27/16 08:24 Pulse Ox 95 10/27/16 08:24 Intake & Output 10/26/16 10/27/1617 18:59 06:59 18:59 Intake Total 1005 Balance 1005 Intake: Intake, IV Amount 1005 Potassium Chloride 10 meq 1005 In Sodium Chloride 0.9% 1,000 ml @ 100 mls/hr IV .Q10H3M [facility] Rx#:[id number] Other: Stool Characteristics Soft Soft Formed Active Medications: Current Medications Acetaminophen (Tylenol Extra Strength) 1,000 mg PO Q6H PRN PRN Reason: Pain or Fever >101 Stop: 12/24/16 01:50 Last Admin: 10/27/16 08:41 Dose: 1,000 mg Acetaminophen/Hydrocodone Bitart ([place] 5mg/325mg) 1 tab PO Q6H PRN PRN Reason: Severe Pain Stop: 12/24/16 01:46 Last Admin: 10/27/16 13:12 Dose: 1 tab Carbidopa/Levodopa (Sinemet 25mg-100 Mg) 1 tab PO BID [facility] Stop: 12/24/16 08:59 Last Admin: 10/27/16 08:42 Dose: 1 tab Donepezil HCl (Aricept) 5 mg PO DAILY [facility] Stop: 12/24/16 08:59 Last Admin: 10/27/16 08:42 Dose: 5 mg Fluoxetine HCl (Prozac) 20 mg PO BID JONH PRN Reason: Protocol Stop: 12/24/16 08:59 Last Admin: 10/27/16 08:41 Dose: 20 mg Ceftriaxone Sodium 1 gm/ (Sodium Chloride) 100 mls @ 100 mls/hr IV Q24HR [facility] Stop: 12/24/16 19:59 Last Admin: 10/26/16 21:25 Dose: 100 mls/hr Vancomycin HCl 1 gm/ Sodium (Chloride) 250 mls @ 166.667 mls/hr IV Q24H [facility] Stop: 12/26/16 09:59 Last Admin: 10/27/16 09:55 Dose: 166.667 mls/hr Potassium Chloride 10 meq/ (Sodium Chloride) 1,005 mls @ 75 mls/hr IV .[id number] [facility] Stop: 12/26/16 08:58 Last Admin: 10/27/16 13:33 Dose: 75 mls/hr Insulin Aspart (Novolog Insulin Sliding Scale) 0 units SUBQ ACHS [facility] PRN Reason: Protocol Stop: 12/24/16 07:29 Last Admin: 10/27/16 13:09 Dose: Not Given Ketorolac Tromethamine (Toradol) 30 mg IVP Q4HR PRN PRN Reason: BACK PAIN Stop: 12/24/16 14:51 Last Admin: 10/26/16 13:10 Dose: 30 mg Loperamide HCl (Imodium) 2 mg PO Q6H PRN PRN Reason: Diarrhea Stop: 12/24/16 01:46 Lorazepam (Ativan) 0.5 mg PO Q12H PRN; Protocol PRN Reason: Anxiety Stop: 12/24/16 01:46 Megestrol Acetate (Megace) 40 mg PO BID JONH PRN Reason: Protocol Stop: 12/24/16 08:59 Last Admin: 10/27/16 08:42 Dose: 40 mg Memantine (Namenda) 5 mg PO BID JONH Stop: 12/24/16 08:59 Last Admin: 10/27/16 08:42 Dose: 5 mg Mirtazapine (Remeron) 30 mg PO HS JONH PRN Reason: Protocol Stop: 12/24/16 20:59 Last Admin: 10/26/16 21:24 Dose: 30 mg Risperidone (Risperdal) 0.5 mg PO BID JONH PRN Reason: Protocol Stop: 12/24/16 08:59 Last Admin: 10/27/16 08:42 Dose: 0.5 mg Assessment/Plan - Problem List Patient Problems: All Active Problems COCCYX ULCER AND POOR ORAL INTAKE (Acute) Nutritional Asmnt/Malnutr-PDOC - Dietary Evaluation Malnutrition Findings (Please click <Entered> for more info): Nutritional Asmnt/Malnutrition Start: 10/25/16 12: 08 Text: Status: Complete Freq: Document 10/25/16 12:10 KEYUR (Rec: 10/25/16 12:28 KEYUR [id number] [email or web address]) Nutritional Asmnt/Malnutrition Patient General Information Nutritional Screening High Risk Screening Diagnosis (reason for visit) UTI Pertinent Medical Hx/Surgical Hx Dementia, parkinsons, diabetes Subjective Information Patient seen eating lunch tray at time of visit with help of MOID MIDDLE SCHOOL TEACHER. MOID MIDDLE SCHOOL TEACHER states patient needs full assistance with meals, and would benefit from chopped foods as she is having some swallowing difficulty. Swallow evaluation is ordered but has not yet been completed. Oral intake of breakfast and lunch >75%. Current Diet Order/ Nutrition Support 60 gm CCHO Patient / S.O Can't verbalize diet edu Pertinent Medications Novolog, imodium, megace Pertinent Labs (10/25) K 3.2, glucose 179, 172 , 216, albumin 3 Nutritional Hx/Data Height 12.7 cm Height (Calculated Centimeters) 12.7 Current Weight (lbs) 49.895 kg Weight (Calculated Kilograms) 49.9 Weight (Calculated Grams) 09263.2 [place] Body Weight 100 % [place] Body Weight 110 Weight Status Approriate GI Symptoms GI Symptoms None Food Allergies No Cultural/Ethnic/Restorationism Belief none indicated Usual diet at home regular Skin Integrity/Comment: Pressure area/ulceration, driss 13 Current %PO Good (75-100%) Estimated Nutritional Goals BEE in Kcals: Using Current wt Calories/Kcals/Kg 27-32 kcal/kg - history of poor po Kcals Calculated 5252-1201 kcal/day Protein: Using Current wt Protein g/k-1.2 gm/kg Protein Calculated 50-60 gm/day Fluid: ml 0567-2996 ml/day Nutritional Problem 2. Problem Problem Altered nutrition related lab values related to Etiology electrolyte imbalance and uncontrolled glucose as evidenced by Signs/Symptoms: K 3.2, Glucose 216 1. Problem Problem Inadequate oral intake related to Etiology possible poor appetite from UTI/dementia Signs/Symptoms: as evidenced by family states history of poor po x 3 weeks Intervention/Recommendation Recommendations by RD Protein supplementation Comments 1. Continue 60 gm CCHO diet as tolerated by patient, modify texture to chopped. Consider changing fluid consistency per speech therapy. 2. Continue Megace to improve appetite and oral intake. 3. Provide full assistance with meals and encourage oral intake. 4. If oral intake decreases, consider Boost Glucose Control TID with meals to supplement oral intake and provide a source of Potassium. Expected Outcomes/Goals Expected Outcomes/Goals oral intake adequate to meet > 75% of estimated needs, K and glucose normalizes, weight remains stable. Physician Parameters for PEM Serum Albumin (g/dl) 2.4 - 3.0 (Moderate)
[2016-10-27] MEDS: cefTRIAXone 1 GM in Sodium Chloride 0.9% 100 ML IV SCH (21:14)
[2016-10-28 06:03] LABS: % BASOPHILS 0.2 % (0.0-2.0); % EOSINOPHILS 2.3 % (0.0-5.0); % LYMPHOCYTES 9.4 % (20.0-50.0); % MONOCYTES 7.6 % (2.0-10.0); % NEUTROPHILS 80.5 % (40.0-80.0); HEMATOCRIT 33.2 % (35.0-45.0); HEMOGLOBIN 11.5 gm/dL (11.7-16.1); MEAN CELL VOLUME 89.7 fl (81-100); MEAN CORPUSCULAR HEMOGLOBIN 31.1 pg (27.0-31.0); MEAN CORPUSCULAR HGB CONC 34.7 pg (28.0-36.0); MEAN PLATELET VOLUME 7.8 fl; NEUTROPHILE ABSOLUTE 6.6 Th/cmm (1.8-8.0); PLATELET COUNT 272 Th/cmm (150-400); WHITE BLOOD COUNT 8.2 Th/cmm (4.8-10.8)
[2016-10-28 06:05] LABS: ANION GAP 11.3 (7.0-16.0); BUN - UREA NITROGEN 11 mg/dL (7-25); BUN/CREATININE RATIO 36.7; CALCIUM SERUM 8.1 mg/dL (8.6-10.3); CARBON DIOXIDE 21.6 mEq/L (21.0-31.0); CHLORIDE 103 mEq/L (98-107); CREATININE - SERUM 0.3 mg/dL (0.6-1.2); GLUCOSE 107 mg/dL (70-105); POTASSIUM SERUM 3.9 mEq/L (3.5-5.1); SODIUM SERUM 132 mEq/L (136-145)
[2016-10-28] MEDS: INSULIN ASPART SLIDING SCALE 100 UNITS/ML UNIT SUBQ SCH ×4 (07:12→21:45)
[2016-10-28] MEDS ORDERED: Midazolam 1mg/ml 2 ml vial IV ONE (08:01)
[2016-10-28] MEDS ORDERED: Meperidine 50 mg/mL 1mL Syr ONE ×2 (08:02→11:09)
[2016-10-28 08:20] LABS: PROTHROMBIN TIME (TEST) 9.9 SECONDS (9.5-11.5)
[2016-10-28] MEDS ORDERED: metroNIDAZOLE 500mg/NS 100mL 500 MG/100 ML BAG IV SCH (09:00)
[2016-10-28] MEDS ORDERED: Neostigmine 10mg/10mL Vial ONE (09:13)
[2016-10-28] MEDS ORDERED: Meperidine 25 mg/mL 1mL Syr IVP PRN (09:14)
[2016-10-28] MEDS ORDERED: Lactated Ringer 1,000 ML IV SCH (09:15)
--- NOTE | 2016-10-28 09:45 | General Progress Note ---
Subjective - Review of Systems Service Date: 10/28/16 Events since last encounter: diverting colostomy done excisional debridement of stage 4 sacral decubitus ulcer and appliation of wound vac patient to ICU for 24 hrs observation Objective - Results Result Diagrams: 10/28/16 05:00 10/28/16 05:00 Recent Labs: Laboratory Last Values WBC 8.2 Th/cmm (4.8-10.8) 10/28/16 05:00 RBC 3.70 Mil/cmm (3.80-5.20) L 10/28/16 05:00 Hgb 11.5 gm/dL (11.7-16.1) L 10/28/16 05:00 Hct 33.2 % (35.0-45.0) L 10/28/16 05:00 MCV 89.7 fl (81-100) 10/28/16 05:00 MCH 31.1 pg (27.0-31.0) H 10/28/16 05:00 MCHC Differential 34.7 pg (28.0-36.0) 10/28/16 05:00 RDW 14.0 % (11.5-20.0) 10/28/16 05:00 Plt Count 272 Th/cmm (150-400) 10/28/16 05:00 MPV 7.8 fl 10/28/16 05:00 Neutrophils % 80.5 % (40.0-80.0) H 10/28/16 05:00 Band Neutrophils % 1 % (0-10) 10/27/16 05:47 Lymphocytes % 9.4 % (20.0-50.0) L 10/28/16 05:00 Monocytes % 7.6 % (2.0-10.0) 10/28/16 05:00 Eosinophils % 2.3 % (0.0-5.0) 10/28/16 05:00 Basophils % 0.2 % (0.0-2.0) 10/28/16 05:00 Neutrophils (Manual) 86 % (40-80) H 10/27/16 05:47 Lymphocytes 8 % (20-50) L 10/27/16 05:47 Monocytes 4 % (2-10) 10/27/16 05:47 Eosinophils 1 % (0-5) 10/27/16 05:47 Basophils 1 % (0-3) 10/25/16 05:07 Platelet Estimate ADEQUATE (NORMAL) 10/27/16 05:47 Platelet Morphology NORMAL (NORMAL) 10/27/16 05:47 RBC Morph Micro Appear NORMAL (NORMAL) 10/27/16 05:47 PT 9.9 SECONDS (9.5-11.5) 10/28/16 05:00 INR 1.00 (0.5-1.4) 10/28/16 05:00 PTT (Actin FS) 30.7 SECONDS (26.0-38.0) 10/28/16 05:00 Sodium 132 mEq/L (136-145) L 10/28/16 05:00 Potassium 3.9 mEq/L (3.5-5.1) 10/28/16 05:00 Chloride 103 mEq/L (98-107) 10/28/16 05:00 Carbon Dioxide 21.6 mEq/L (21.0-31.0) 10/28/16 05:00 Anion Gap 11.3 (7.0-16.0) 10/28/16 05:00 BUN 11 mg/dL (7-25) 10/28/16 05:00 Creatinine 0.3 mg/dL (0.6-1.2) L 10/28/16 05:00 Est GFR ( Amer) TNP 10/28/16 05:00 Est GFR (Non-Af Amer) TNP 10/28/16 05:00 BUN/Creatinine Ratio 36.7 10/28/16 05:00 Glucose 107 mg/dL (70-105) H 10/28/16 05:00 POC Glucose 105 MG/DL (70 - 105) 10/28/16 06:06 Hemoglobin A1c % 6.9 % (4.0-6.0) H 10/26/16 05:10 Calcium 8.1 mg/dL (8.6-10.3) L 10/28/16 05:00 Magnesium 2.0 mg/dL (1.9-2.7) 10/28/16 05:00 Total Bilirubin 0.7 mg/dL (0.3-1.0) 10/25/16 05:07 AST 43 U/L (13-39) H 10/25/16 05:07 ALT 38 U/L (7-52) 10/25/16 05:07 Alkaline Phosphatase 79 U/L (34-104) 10/25/16 05:07 Troponin I 0.01 ng/mL (0.01-0.05) 10/24/16 19:45 Total Protein 6.6 gm/dL (6.0-8.3) 10/25/16 05:07 Albumin 3.0 gm/dL (3.7-5.3) L 10/25/16 05:07 Globulin 3.6 gm/dL 10/25/16 05:07 Albumin/Globulin Ratio 0.8 (1.0-1.8) L 10/25/16 05:07 TSH 1.78 uIU/ml (0.34-5.60) 10/25/16 05:07 Urine Source CLEAN C 10/24/16 20:49 Urine Color LILLIE 10/24/16 20:49 Urine Clarity CLOUDY (CLEAR) H 10/24/16 20:49 Urine pH 5.5 10/24/16 20:49 Ur Specific [place] 1.025 (1.005-1.030) 10/24/16 20:49 Urine Protein 30 mg/dL (NEGATIVE) H 10/24/16 20:49 Urine Glucose (UA) NEGATIVE mg/dL (NEGATIVE) 10/24/16 20:49 Urine Ketones 15 mg/dL (NEGATIVE) H 10/24/16 20:49 Urine Blood MODERATE (NEGATIVE) H 10/24/16 20:49 Urine Nitrate POSITIVE (NEGATIVE) H 10/24/16 20:49 Urine Bilirubin SMALL (NEGATIVE) H 10/24/16 20:49 Urine Urobilinogen 2.0 E.U./dL (0.2 - 1.0) 10/24/16 20:49 Ur Leukocyte Esterase SMALL (NEGATIVE) H 10/24/16 20:49 Urine RBC 10-25 /hpf (0-5) H 10/24/16 20:49 Urine WBC 6-10 /hpf (0-5) H 10/24/16 20:49 Ur Epithelial Cells MODERATE /lpf (FEW) 10/24/16 20:49 Urine Bacteria MANY /hpf (NONE SEEN) 10/24/16 20:49 - Physical Exam Vitals and I&O: Vital Signs Temp 97.9 F 10/28/16 08:00 Pulse 81 10/28/16 08:00 Resp 19 10/28/16 08:00 BP 133/68 10/28/16 08:00 Pulse Ox 97 10/28/16 08:00 Intake & Output 10/27/16 10/28/16 10/28/16 18:59 06:59 18:59 Intake Total 100 200 Output Total 100 900 Balance 0 -700 Intake: Oral 100 200 Output: Urine 100 900 Other: Stool Characteristics Soft Active Medications: Current Medications Acetaminophen (Tylenol Extra Strength) 1,000 mg PO Q6H PRN PRN Reason: Pain or Fever >101 Stop: 12/24/16 01:50 Last Admin: 10/27/16 08:41 Dose: 1,000 mg Acetaminophen/Hydrocodone Bitart ([place] 5mg/325mg) 1 tab PO Q6H PRN PRN Reason: Severe Pain Stop: 12/24/16 01:46 Last Admin: 10/27/16 13:12 Dose: 1 tab Carbidopa/Levodopa (Sinemet 25mg-100 Mg) 1 tab PO BID [facility] Stop: 12/24/16 08:59 Last Admin: 10/27/16 18:04 Dose: 1 tab Donepezil HCl (Aricept) 5 mg PO DAILY JONH Stop: 12/24/16 08:59 Last Admin: 10/27/16 08:42 Dose: 5 mg Fluoxetine HCl (Prozac) 20 mg PO BID JONH PRN Reason: Protocol Stop: 12/24/16 08:59 Last Admin: 10/27/16 18:05 Dose: 20 mg Ceftriaxone Sodium 1 gm/ (Sodium Chloride) 100 mls @ 100 mls/hr IV Q24HR [facility] Stop: 12/24/16 19:59 Last Admin: 10/27/16 21:14 Dose: 100 mls/hr Vancomycin HCl 1 gm/ Sodium (Chloride) 250 mls @ 166.667 mls/hr IV Q24H [facility] Stop: 12/26/16 09:59 Last Admin: 10/27/16 09:55 Dose: 166.667 mls/hr Potassium Chloride 10 meq/ (Sodium Chloride) 1,005 mls @ 75 mls/hr IV .[id number] [facility] Stop: 12/26/16 08:58 Last Admin: 10/28/16 06:13 Dose: Not Given Metronidazole (Flagyl) 500 mg in 100 mls @ 100 mls/hr IV Q8HR [facility] Stop: 12/27/16 08:59 Lactated Ringer's (Lactated Ringer) 1,000 mls @ 0 mls/hr IV .Q0M JON[facility] PRN Reason: TKO Stop: 10/29/16 09:14 Insulin Aspart (Novolog Insulin Sliding Scale) 0 units SUBQ ACHS [facility] PRN Reason: Protocol Stop: 12/24/16 07:29 Last Admin: 10/28/16 07:12 Dose: Not Given Ketorolac Tromethamine (Toradol) 30 mg IVP Q4HR PRN PRN Reason: BACK PAIN Stop: 12/24/16 14:51 Last Admin: 10/26/16 13:10 Dose: 30 mg Loperamide HCl (Imodium) 2 mg PO Q6H PRN PRN Reason: Diarrhea Stop: 12/24/16 01:46 Lorazepam (Ativan) 0.5 mg PO Q12H PRN; Protocol PRN Reason: Anxiety Stop: 12/24/16 01:46 Megestrol Acetate (Megace) 40 mg PO BID JONH PRN Reason: Protocol Stop: 12/24/16 08:59 Last Admin: 10/27/16 18:02 Dose: 40 mg Memantine (Namenda) 5 mg PO BID JONH Stop: 12/24/16 08:59 Last Admin: 10/27/16 18:02 Dose: 5 mg Meperidine HCl (Demerol) 12.5 mg IVP UD PRN PRN Reason: POST-OP PAIN Stop: 10/29/16 09:13 Mirtazapine (Remeron) 30 mg PO HS [facility] PRN Reason: Protocol Stop: 12/24/16 20:59 Last Admin: 10/27/16 21:17 Dose: 30 mg Ondansetron HCl (Zofran) 4 mg IV X1 PRN PRN Reason: Nausea / Vomiting Stop: 10/29/16 09:13 Risperidone (Risperdal) 0.5 mg PO BID JONH PRN Reason: Protocol Stop: 12/24/16 08:59 Last Admin: 10/27/16 18:03 Dose: 0.5 mg Assessment/Plan - Problem List Patient Problems: All Active Problems COCCYX ULCER AND POOR ORAL INTAKE (Acute) Nutritional Asmnt/Malnutr-PDOC - Dietary Evaluation Malnutrition Findings (Please click <Entered> for more info): Nutritional Asmnt/Malnutrition Start: 10/25/16 12: 08 Text: Status: Complete Freq: Document 10/25/16 12:10 KEYUR (Rec: 10/25/16 12:28 KEYUR [id number] [email or web address]) Nutritional Asmnt/Malnutrition Patient General Information Nutritional Screening High Risk Screening Diagnosis (reason for visit) UTI Pertinent Medical Hx/Surgical Hx Dementia, parkinsons, diabetes Subjective Information Patient seen eating lunch tray at time of visit with help of HANDBAG FRAMES INSPECTOR. HANDBAG FRAMES INSPECTOR states patient needs full assistance with meals, and would benefit from chopped foods as she is having some swallowing difficulty. Swallow evaluation is ordered but has not yet been completed. Oral intake of breakfast and lunch >75%. Current Diet Order/ Nutrition Support 60 gm CCHO Patient / S.O Can't verbalize diet edu Pertinent Medications Novolog, imodium, megace Pertinent Labs (10/25) K 3.2, glucose 179, 172 , 216, albumin 3 Nutritional Hx/Data Height 12.7 cm Height (Calculated Centimeters) 12.7 Current Weight (lbs) 49.895 kg Weight (Calculated Kilograms) 49.9 Weight (Calculated Grams) 60267.2 [place] Body Weight 100 % [place] Body Weight 110 Weight Status Approriate GI Symptoms GI Symptoms None Food Allergies No Cultural/Ethnic/Caodaism Belief none indicated Usual diet at home regular Skin Integrity/Comment: Pressure area/ulceration, driss 13 Current %PO Good (75-100%) Estimated Nutritional Goals BEE in Kcals: Using Current wt Calories/Kcals/Kg 27-32 kcal/kg - history of poor po Kcals Calculated 7163-2616 kcal/day Protein: Using Current wt Protein g/k-1.2 gm/kg Protein Calculated 50-60 gm/day Fluid: ml 6136-8272 ml/day Nutritional Problem 2. Problem Problem Altered nutrition related lab values related to Etiology electrolyte imbalance and uncontrolled glucose as evidenced by Signs/Symptoms: K 3.2, Glucose 216 1. Problem Problem Inadequate oral intake related to Etiology possible poor appetite from UTI/dementia Signs/Symptoms: as evidenced by family states history of poor po x 3 weeks Intervention/Recommendation Recommendations by RD Protein supplementation Comments 1. Continue 60 gm CCHO diet as tolerated by patient, modify texture to chopped. Consider changing fluid consistency per speech therapy. 2. Continue Megace to improve appetite and oral intake. 3. Provide full assistance with meals and encourage oral intake. 4. If oral intake decreases, consider Boost Glucose Control TID with meals to supplement oral intake and provide a source of Potassium. Expected Outcomes/Goals Expected Outcomes/Goals oral intake adequate to meet > 75% of estimated needs, K and glucose normalizes, weight remains stable. Physician Parameters for PEM Serum Albumin (g/dl) 2.4 - 3.0 (Moderate)
--- NOTE | 2016-10-28 12:00 | Consultation ---
REFERRING PHYSICIAN: Dr. Soria. REASON FOR CONSULTATION: Decubitus ulcer. Thank you for referring this patient to me. This is a 6-year-old female who resides in a custodial with advanced dementia, Parkinson disease, type 2 diabetes and worsening sacral decubitus ulcer. The daughter was called over the phone and apparently this has been developing for several weeks. LABORATORY STUDIES: On this admission, the CBC is normal, hemoglobin is slightly low at 11.5 with 80% neutrophils. Chemistry is within normal limits. Chest x-ray shows no acute pulmonary disease. PHYSICAL EXAMINATION: The patient is unable to give any information. The significant findings are foul smelling decubitus ulcer in the sacrum with a black skin cover and ulcerations beneath this and ____ appears to be stage IV involving the bone. The patient is incontinent of urine and stool. Daughter was called over the phone regarding the risks and complications with and without surgery. The daughter understands diverting colostomy with excisional debridement and wound VAC will give ____ result than nonsurgical intervention. Consent was given over the phone. JOB# [id number] HANS
--- NOTE | 2016-10-28 13:54 | Operative Report ---
PREOPERATIVE DIAGNOSES: 1. Stage IV sacral decubitus ulcer. 2. Dementia. 3. Diabetes mellitus. 4. Parkinson disease. 5. Incontinent of urine and feces. POSTOPERATIVE DIAGNOSES: 1. Stage IV sacral decubitus ulcer. 2. Dementia. 3. Diabetes mellitus. 4. Parkinson disease. 5. Incontinent of urine and feces. OPERATION DONE: 1. Diverting colostomy. 2. Partial colon resection. 3. Lysis of dense adhesions. 4. Excisional debridement of sacral decubitus ulcer. 5. Application of wound VAC. SURGEON: Sandi Ramachandran MD ANESTHESIA: General. ANESTHESIOLOGIST: John Odom M.D. ESTIMATED BLOOD LOSS: 30 mL. INDICATIONS FOR SURGERY: The patient with stage IV sacral decubitus ulcer with diabetes and incontinence of both urine and feces. OPERATIVE FINDINGS: Redundant colon with hard stools. Partial colectomy was done and diverting colostomy and Emy's pouch. DESCRIPTION OF PROCEDURE: The patient was given general anesthesia. The abdomen was prepped with ChloraPrep and draped in appropriate manner. An incision was made through the old scar. Bleeders were coagulated. The abdomen was entered. There were adhesions to the anterior abdominal wall, which was lysed sharply with cautery. Retractor was applied. The colon was found to be markedly redundant with hard stool. For this reason, partial colectomy was done. LEONIDES was used to transect the colon in the distal portion and the staple line was reinforced with running suture of 3-0 silk. Approximately a foot and a half of large bowel was resected in view of its marked redundancy. The proximal colon was divided with GI instrument and the intervening mesentery was transected utilizing LigaSure. Satisfactory hemostasis was checked and this was found to be satisfactory. The colon was brought out through a colostomy through an incision in the left quadrant of the abdomen as a colostomy. The colon was then sutured to the undersurface of the abdominal wall utilizing 3-0 silk and the mesentery was approximated with the level of the abdominal wall to prevent internal herniation again using 3-0 silk. Following satisfactory hemostasis and sponge count, the incision was closed with running suture of #1 PDS. The subcutaneous tissues were closed with 3-0 Vicryl and the skin was closed with subcuticular suture of 4-0 Vicryl. Sterile dressing consisting of Dermabond and isolation of the incision from the colostomy with OpSite was done. The colostomy was matured utilizing everting sutures of 4-0 Vicryl and a bag was placed over this. The patient was then turned on the left lateral decubitus physician. The ulcer was prepped with Betadine and draped. Sharp scissors and cautery was used to completely incise the ulcer, which measured about 8 cm x 6 cm, but deep to the bone. Cultures were taken. A silver sponge was then applied and connected to wound VAC. The patient will be sent to ICU for observation for the next 24 hours. JOB# [id number]
[2016-10-28] MEDS: Venelex 60gm Tube TP SCH (14:58)
[2016-10-28] MEDS: metroNIDAZOLE 500mg/NS 100mL 500 MG/100 ML BAG IV SCH ×2 (15:06→21:43)
[2016-10-28] MEDS: cefTRIAXone 1 GM in Sodium Chloride 0.9% 100 ML IV SCH (20:24)
[2016-10-29 05:08] LABS: % BASOPHILS 0.3 % (0.0-2.0); % LYMPHOCYTES 7.2 % (20.0-50.0); % MONOCYTES 6.6 % (2.0-10.0); % NEUTROPHILS 84.9 % (40.0-80.0); HEMATOCRIT 36.2 % (35.0-45.0); HEMOGLOBIN 12.1 gm/dL (11.7-16.1); MEAN CELL VOLUME 89.1 fl (81-100); MEAN CORPUSCULAR HEMOGLOBIN 29.7 pg (27.0-31.0); MEAN CORPUSCULAR HGB CONC 33.3 pg (28.0-36.0); MEAN PLATELET VOLUME 7.4 fl; NEUTROPHILE ABSOLUTE 6.3 Th/cmm (1.8-8.0); PLATELET COUNT 317 Th/cmm (150-400); RED BLOOD COUNT 4.06 Mil/cmm (3.80-5.20); RED CELL DISTRIBUTION WIDTH 14.1 % (11.5-20.0); WHITE BLOOD COUNT 7.4 Th/cmm (4.8-10.8)
[2016-10-29 05:32] LABS: ALB/GLOB RATIO 0.7 (1.0-1.8); ALKALINE PHOSPHATASE 80 U/L (34-104); ANION GAP 11.7 (7.0-16.0); BILIRUBIN,TOTAL 0.4 mg/dL (0.3-1.0); BUN - UREA NITROGEN 9 mg/dL (7-25); BUN/CREATININE RATIO 22.5; CALCIUM SERUM 8.2 mg/dL (8.6-10.3); CARBON DIOXIDE 24.6 mEq/L (21.0-31.0); CHLORIDE 105 mEq/L (98-107); CREATININE - SERUM 0.4 mg/dL (0.6-1.2); GLUCOSE 136 mg/dL (70-105); MAGNESIUM 1.9 mg/dL (1.9-2.7); POTASSIUM SERUM 4.3 mEq/L (3.5-5.1); SGOT 28 U/L (13-39); SGPT/ALT 21 U/L (7-52); SODIUM SERUM 137 mEq/L (136-145)
[2016-10-29] MEDS: metroNIDAZOLE 500mg/NS 100mL 500 MG/100 ML BAG IV SCH ×3 (05:34→20:29)
[2016-10-29] MEDS: INSULIN ASPART SLIDING SCALE 100 UNITS/ML UNIT SUBQ SCH ×3 (07:43→21:03)
--- NOTE | 2016-10-29 08:04 | General Progress Note ---
Subjective - Review of Systems Service Date: 10/29/16 Events since last encounter: labs ok colostomy minimal drainage VS stable Objective - Results Result Diagrams: 10/29/16 04:28 10/29/16 04:28 Recent Labs: Laboratory Last Values WBC 7.4 Th/cmm (4.8-10.8) 10/29/16 04:28 RBC 4.06 Mil/cmm (3.80-5.20) 10/29/16 04:28 Hgb 12.1 gm/dL (11.7-16.1) 10/29/16 04:28 Hct 36.2 % (35.0-45.0) 10/29/16 04:28 MCV 89.1 fl (81-100) 10/29/16 04:28 MCH 29.7 pg (27.0-31.0) 10/29/16 04:28 MCHC Differential 33.3 pg (28.0-36.0) 10/29/16 04:28 RDW 14.1 % (11.5-20.0) 10/29/16 04:28 Plt Count 317 Th/cmm (150-400) 10/29/16 04:28 MPV 7.4 fl 10/29/16 04:28 Neutrophils % 84.9 % (40.0-80.0) H 10/29/16 04:28 Band Neutrophils % 1 % (0-10) 10/27/16 05:47 Lymphocytes % 7.2 % (20.0-50.0) L 10/29/16 04:28 Monocytes % 6.6 % (2.0-10.0) 10/29/16 04:28 Eosinophils % 1.0 % (0.0-5.0) 10/29/16 04:28 Basophils % 0.3 % (0.0-2.0) 10/29/16 04:28 Neutrophils (Manual) 86 % (40-80) H 10/27/16 05:47 Lymphocytes 8 % (20-50) L 10/27/16 05:47 Monocytes 4 % (2-10) 10/27/16 05:47 Eosinophils 1 % (0-5) 10/27/16 05:47 Basophils 1 % (0-3) 10/25/16 05:07 Platelet Estimate ADEQUATE (NORMAL) 10/27/16 05:47 Platelet Morphology NORMAL (NORMAL) 10/27/16 05:47 RBC Morph Micro Appear NORMAL (NORMAL) 10/27/16 05:47 PT 9.9 SECONDS (9.5-11.5) 10/28/16 05:00 INR 1.00 (0.5-1.4) 10/28/16 05:00 PTT (Actin FS) 30.7 SECONDS (26.0-38.0) 10/28/16 05:00 Sodium 137 mEq/L (136-145) 10/29/16 04:28 Potassium 4.3 mEq/L (3.5-5.1) 10/29/16 04:28 Chloride 105 mEq/L (98-107) 10/29/16 04:28 Carbon Dioxide 24.6 mEq/L (21.0-31.0) 10/29/16 04:28 Anion Gap 11.7 (7.0-16.0) 10/29/16 04:28 BUN 9 mg/dL (7-25) 10/29/16 04:28 Creatinine 0.4 mg/dL (0.6-1.2) L 10/29/16 04:28 Est GFR ( Amer) TNP 10/29/16 04:28 Est GFR (Non-Af Amer) TNP 10/29/16 04:28 BUN/Creatinine Ratio 22.5 10/29/16 04:28 Glucose 136 mg/dL (70-105) H 10/29/16 04:28 POC Glucose 142 MG/DL (70 - 105) H 10/29/16 07:15 Hemoglobin A1c % 6.9 % (4.0-6.0) H 10/26/16 05:10 Calcium 8.2 mg/dL (8.6-10.3) L 10/29/16 04:28 Magnesium 1.9 mg/dL (1.9-2.7) 10/29/16 04:28 Total Bilirubin 0.4 mg/dL (0.3-1.0) 10/29/16 04:28 AST 28 U/L (13-39) 10/29/16 04:28 ALT 21 U/L (7-52) 10/29/16 04:28 Alkaline Phosphatase 80 U/L (34-104) 10/29/16 04:28 Troponin I 0.01 ng/mL (0.01-0.05) 10/24/16 19:45 Total Protein 6.1 gm/dL (6.0-8.3) 10/29/16 04:28 Albumin 2.5 gm/dL (3.7-5.3) L 10/29/16 04:28 Globulin 3.6 gm/dL 10/29/16 04:28 Albumin/Globulin Ratio 0.7 (1.0-1.8) L 10/29/16 04:28 TSH 1.78 uIU/ml (0.34-5.60) 10/25/16 05:07 Urine Source CLEAN C 10/24/16 20:49 Urine Color LILLIE 10/24/16 20:49 Urine Clarity CLOUDY (CLEAR) H 10/24/16 20:49 Urine pH 5.5 10/24/16 20:49 Ur Specific Cook 1.025 (1.005-1.030) 10/24/16 20:49 Urine Protein 30 mg/dL (NEGATIVE) H 10/24/16 20:49 Urine Glucose (UA) NEGATIVE mg/dL (NEGATIVE) 10/24/16 20:49 Urine Ketones 15 mg/dL (NEGATIVE) H 10/24/16 20:49 Urine Blood MODERATE (NEGATIVE) H 10/24/16 20:49 Urine Nitrate POSITIVE (NEGATIVE) H 10/24/16 20:49 Urine Bilirubin SMALL (NEGATIVE) H 10/24/16 20:49 Urine Urobilinogen 2.0 E.U./dL (0.2 - 1.0) 10/24/16 20:49 Ur Leukocyte Esterase SMALL (NEGATIVE) H 10/24/16 20:49 Urine RBC 10-25 /hpf (0-5) H 10/24/16 20:49 Urine WBC 6-10 /hpf (0-5) H 10/24/16 20:49 Ur Epithelial Cells MODERATE /lpf (FEW) 10/24/16 20:49 Urine Bacteria MANY /hpf (NONE SEEN) 10/24/16 20:49 - Physical Exam Vitals and I&O: Vital Signs Temp 99.0 F 10/29/16 04:00 Pulse 71 10/29/16 07:00 Resp 13 10/29/16 07:00 BP 110/66 10/29/16 07:00 Pulse Ox 100 10/29/16 07:00 Intake & Output 10/28/16 10/29/16 10/29/16 18:59 06:59 18:59 Intake Total 100 200 Output Total 1425 700 Balance -1325 -500 Weight (lbs) 58.649 kg Intake: Intake, IV Amount 100 200 cefTRIAXone 1 gm In 100 Sodium Chloride 0.9% 100 ml @ 100 mls/hr IV Q24HR [facility] Rx#:[id number] metroNIDAZOLE 500mg/NS 100 100 100mL 500 mg In 100 ml @ 100 mls/hr IV Q8HR [facility] Rx #:[id number] Oral 0 Output: Urine 1425 650 Stool 25 Other 25 Active Medications: Current Medications Acetaminophen (Tylenol Extra Strength) 1,000 mg PO Q6H PRN PRN Reason: Pain or Fever >101 Stop: 12/24/16 01:50 Last Admin: 10/27/16 08:41 Dose: 1,000 mg Acetaminophen/Hydrocodone Bitart (Aurora 5mg/325mg) 1 tab PO Q6H PRN PRN Reason: Severe Pain Stop: 12/24/16 01:46 Last Admin: 10/27/16 13:12 Dose: 1 tab Carbidopa/Levodopa (Sinemet 25mg-100 Mg) 1 tab PO BID [facility] Stop: 12/24/16 08:59 Last Admin: 10/28/16 17:52 Dose: Not Given Donepezil HCl (Aricept) 5 mg PO DAILY [facility] Stop: 12/24/16 08:59 Last Admin: 10/28/16 14:59 Dose: Not Given Fluoxetine HCl (Prozac) 20 mg PO BID JONH PRN Reason: Protocol Stop: 12/24/16 08:59 Last Admin: 10/28/16 17:52 Dose: Not Given Ceftriaxone Sodium 1 gm/ (Sodium Chloride) 100 mls @ 100 mls/hr IV Q24HR [facility] Stop: 12/24/16 19:59 Last Infusion: 10/28/16 21:25 Dose: Infused Vancomycin HCl 1 gm/ Sodium (Chloride) 250 mls @ 166.667 mls/hr IV Q24H [facility] Stop: 12/26/16 09:59 Last Admin: 10/28/16 10:49 Dose: 166.667 mls/hr Potassium Chloride 10 meq/ (Sodium Chloride) 1,005 mls @ 75 mls/hr IV .[id number] [facility] Stop: 12/26/16 08:58 Last Admin: 10/28/16 15:15 Dose: 75 mls/hr Metronidazole (Flagyl) 500 mg in 100 mls @ 100 mls/hr IV Q8HR [facility] Stop: 12/27/16 12:59 Last Admin: 10/29/16 05:34 Dose: 100 mls/hr Insulin Aspart (Novolog Insulin Sliding Scale) 0 units SUBQ ACHS JONH PRN Reason: Protocol Stop: 12/24/16 07:29 Last Admin: 10/29/16 07:43 Dose: Not Given Ketorolac Tromethamine (Toradol) 30 mg IVP Q4HR PRN PRN Reason: BACK PAIN Stop: 12/24/16 14:51 Last Admin: 10/29/16 02:18 Dose: 30 mg Loperamide HCl (Imodium) 2 mg PO Q6H PRN PRN Reason: Diarrhea Stop: 12/24/16 01:46 Lorazepam (Ativan) 0.5 mg PO Q12H PRN; Protocol PRN Reason: Anxiety Stop: 12/24/16 01:46 Megestrol Acetate (Megace) 40 mg PO BID JONH PRN Reason: Protocol Stop: 12/24/16 08:59 Last Admin: 10/28/16 17:52 Dose: Not Given Memantine (Namenda) 5 mg PO BID [facility] Stop: 12/24/16 08:59 Last Admin: 10/28/16 17:53 Dose: Not Given Mirtazapine (Remeron) 30 mg PO HS JONH PRN Reason: Protocol Stop: 12/24/16 20:59 Last Admin: 10/28/16 21:00 Dose: Not Given Miscellaneous (Vancomycin Iv Per Pharmacy) 1 ea MC PRN PRN PRN Reason: VANCOMYCIN Stop: 12/28/16 07:31 Ondansetron HCl (Zofran) 4 mg IV UD PRN PRN Reason: Nausea / Vomiting Stop: 12/27/16 09:13 Risperidone (Risperdal) 0.5 mg PO BID JONH PRN Reason: Protocol Stop: 12/24/16 08:59 Last Admin: 10/28/16 17:53 Dose: Not Given Assessment/Plan - Problem List Patient Problems: All Active Problems COCCYX ULCER AND POOR ORAL INTAKE (Acute) Nutritional Asmnt/Malnutr-PDOC - Dietary Evaluation Malnutrition Findings (Please click <Entered> for more info): Nutritional Asmnt/Malnutrition Start: 10/25/16 12: 08 Text: Status: Complete Freq: Document 10/25/16 12:10 KEYUR (Rec: 10/25/16 12:28 KEYUR [id number]) Nutritional Asmnt/Malnutrition Patient General Information Nutritional Screening High Risk Screening Diagnosis (reason for visit) UTI Pertinent Medical Hx/Surgical Hx Dementia, parkinsons, diabetes Subjective Information Patient seen eating lunch tray at time of visit with help of MOTOR VEHICLE FIELD REPRESENTATIVE. MOTOR VEHICLE FIELD REPRESENTATIVE states patient needs full assistance with meals, and would benefit from chopped foods as she is having some swallowing difficulty. Swallow evaluation is ordered but has not yet been completed. Oral intake of breakfast and lunch >75%. Current Diet Order/ Nutrition Support 60 gm CCHO Patient / S.O Can't verbalize diet edu Pertinent Medications Novolog, imodium, megace Pertinent Labs (10/25) K 3.2, glucose 179, 172 , 216, albumin 3 Nutritional Hx/Data Height 12.7 cm Height (Calculated Centimeters) 12.7 Current Weight (lbs) 49.895 kg Weight (Calculated Kilograms) 49.9 Weight (Calculated Grams) 29097.2 [place] Body Weight 100 % [place] Body Weight 110 Weight Status Approriate GI Symptoms GI Symptoms None Food Allergies No Cultural/Ethnic/[employer] Belief none indicated Usual diet at home regular Skin Integrity/Comment: Pressure area/ulceration, driss 13 Current %PO Good (75-100%) Estimated Nutritional Goals BEE in Kcals: Using Current wt Calories/Kcals/Kg 27-32 kcal/kg - history of poor po Kcals Calculated 5131-8667 kcal/day Protein: Using Current wt Protein g/k-1.2 gm/kg Protein Calculated 50-60 gm/day Fluid: ml 4315-6807 ml/day Nutritional Problem 2. Problem Problem Altered nutrition related lab values related to Etiology electrolyte imbalance and uncontrolled glucose as evidenced by Signs/Symptoms: K 3.2, Glucose 216 1. Problem Problem Inadequate oral intake related to Etiology possible poor appetite from UTI/dementia Signs/Symptoms: as evidenced by family states history of poor po x 3 weeks Intervention/Recommendation Recommendations by RD Protein supplementation Comments 1. Continue 60 gm CCHO diet as tolerated by patient, modify texture to chopped. Consider changing fluid consistency per speech therapy. 2. Continue Megace to improve appetite and oral intake. 3. Provide full assistance with meals and encourage oral intake. 4. If oral intake decreases, consider Boost Glucose Control TID with meals to supplement oral intake and provide a source of Potassium. Expected Outcomes/Goals Expected Outcomes/Goals oral intake adequate to meet > 75% of estimated needs, K and glucose normalizes, weight remains stable. Physician Parameters for PEM Serum Albumin (g/dl) 2.4 - 3.0 (Moderate)
[2016-10-29] MEDS: Venelex 60gm Tube TP SCH (10:37)
[2016-10-29 11:24] LABS: INR 1.04 (0.5-1.4); PROTHROMBIN TIME (TEST) 10.8 SECONDS (9.5-11.5)
--- NOTE | 2016-10-29 15:12 | Pathology Report ---
[id number] Collection date: 10/28/2016 Surgeon: Dr. Debbi Junior Specimen Description: 1. Partial colon resection 2. Sacral debridement tissue Gross Description: Part I: Received in formalin is a partial colon resection specimen measuring 23 cm in length x up to 3.5 cm in diameter. The outer surface has the normal glistening val[place]ia appearance with a small amount of attached fatty tissue. Opening the specimen shows normal folded colon mucosa with no focal lesions appreciated. Community Support Specialist sections are submitted in two cassettes labeled A1 to A2. Gross Description: Part II: Received in formalin is a 3 x 2 x 2 cm portion of grayish-black, necrotic-appearing skin and soft tissue. Sectioning shows no focal lesions. Community Support Specialist sections are submitted in one cassette. Microscopic Description: Part I: The histologic sections show a portion of colon with intact mucosa and muscular wall. There are no focal lesions appreciated. Diagnosis: Part I: Segment of colon showing no significant pathologic findings (redundant colon segment). Microscopic Description: Part II: The histologic sections show a portion of ulcerated skin and soft tissue with extensive degenerative changes and inflammation present consisting of increased numbers of neutrophils with a necrotic background. Diagnosis: Part II: Ulcerated necrotic tissue consistent with debridement (sacral tissue). [facility]# [id number] [facility] SYSTEM[facility]
[2016-10-29] MEDS: cefTAZidime 1 GM in Sodium Chloride 0.9% 50 ML IV SCH ×2 (15:16→20:28)
[2016-10-30] MEDS: cefTAZidime 1 GM in Sodium Chloride 0.9% 50 ML IV SCH ×2 (05:13→15:48)
[2016-10-30 05:37] LABS: % MONOCYTES 9.3 % (2.0-10.0); % NEUTROPHILS 71.7 % (40.0-80.0); MEAN CELL VOLUME 89.2 fl (81-100); MEAN CORPUSCULAR HEMOGLOBIN 30.6 pg (27.0-31.0); MEAN CORPUSCULAR HGB CONC 34.3 pg (28.0-36.0); MEAN PLATELET VOLUME 7.1 fl; NEUTROPHILE ABSOLUTE 3.5 Th/cmm (1.8-8.0); PLATELET COUNT 313 Th/cmm (150-400); RED BLOOD COUNT 3.23 Mil/cmm (3.80-5.20); RED CELL DISTRIBUTION WIDTH 14.2 % (11.5-20.0)
[2016-10-30] MEDS: metroNIDAZOLE 500mg/NS 100mL 500 MG/100 ML BAG IV SCH ×2 (05:45→13:12)
[2016-10-30 05:47] LABS: WHITE BLOOD COUNT 4.7 Th/cmm (4.8-10.8)
[2016-10-30 05:48] LABS: HEMATOCRIT 28.8 % (35.0-45.0); HEMOGLOBIN 9.9 gm/dL (11.7-16.1)
[2016-10-30 05:59] LABS: ANION GAP 6.9 (7.0-16.0); BUN - UREA NITROGEN 11 mg/dL (7-25); BUN/CREATININE RATIO 36.7; CALCIUM SERUM 7.7 mg/dL (8.6-10.3); CARBON DIOXIDE 26.3 mEq/L (21.0-31.0); CHLORIDE 108 mEq/L (98-107); CREATININE - SERUM 0.3 mg/dL (0.6-1.2); GLUCOSE 106 mg/dL (70-105); MAGNESIUM 1.9 mg/dL (1.9-2.7); POTASSIUM SERUM 3.2 mEq/L (3.5-5.1); SODIUM SERUM 138 mEq/L (136-145)
[2016-10-30] MEDS: INSULIN ASPART SLIDING SCALE 100 UNITS/ML UNIT SUBQ SCH ×2 (06:31→13:18)
[2016-10-30] MEDS: Hydrocodone/APAP 5mg/325mg Tab PO PRN (09:16)
[2016-10-30] MEDS: KCL 20mEq/100mL Premix 20 MEQ/100 ML PIGGYBACK IV SCH ×2 (09:17→12:45)
[2016-10-30] MEDS: Venelex 60gm Tube TP SCH (09:17)
--- NOTE | 2016-10-30 13:46 | General Progress Note ---
Subjective - Review of Systems Service Date: 10/30/16 Subjective: dressings and incision clean advance to full liquids labs ok start PT Objective - Results Result Diagrams: 10/30/16 05:24 10/30/16 05:24 Recent Labs: Laboratory Last Values WBC 4.7 Th/cmm (4.8-10.8) L D 10/30/16 05:24 RBC 3.23 Mil/cmm (3.80-5.20) L 10/30/16 05:24 Hgb 9.9 gm/dL (11.7-16.1) L D 10/30/16 05:24 Hct 28.8 % (35.0-45.0) L D 10/30/16 05:24 MCV 89.2 fl (81-100) 10/30/16 05:24 MCH 30.6 pg (27.0-31.0) 10/30/16 05:24 MCHC Differential 34.3 pg (28.0-36.0) 10/30/16 05:24 RDW 14.2 % (11.5-20.0) 10/30/16 05:24 Plt Count 313 Th/cmm (150-400) 10/30/16 05:24 MPV 7.1 fl 10/30/16 05:24 Neutrophils % 71.7 % (40.0-80.0) 10/30/16 05:24 Band Neutrophils % 1 % (0-10) 10/27/16 05:47 Lymphocytes % 13.0 % (20.0-50.0) L 10/30/16 05:24 Monocytes % 9.3 % (2.0-10.0) 10/30/16 05:24 Eosinophils % 5.0 % (0.0-5.0) 10/30/16 05:24 Basophils % 1.0 % (0.0-2.0) 10/30/16 05:24 Neutrophils (Manual) 86 % (40-80) H 10/27/16 05:47 Lymphocytes 8 % (20-50) L 10/27/16 05:47 Monocytes 4 % (2-10) 10/27/16 05:47 Eosinophils 1 % (0-5) 10/27/16 05:47 Basophils 1 % (0-3) 10/25/16 05:07 Platelet Estimate ADEQUATE (NORMAL) 10/27/16 05:47 Platelet Morphology NORMAL (NORMAL) 10/27/16 05:47 RBC Morph Micro Appear NORMAL (NORMAL) 10/27/16 05:47 ESR 69 mm/hr (0-30) H 10/30/16 05:24 PT 10.8 SECONDS (9.5-11.5) 10/29/16 10:50 INR 1.04 (0.5-1.4) 10/29/16 10:50 PTT (Actin FS) 27.8 SECONDS (26.0-38.0) 10/29/16 10:50 Sodium 138 mEq/L (136-145) 10/30/16 05:24 Potassium 3.2 mEq/L (3.5-5.1) L 10/30/16 05:24 Chloride 108 mEq/L (98-107) H 10/30/16 05:24 Carbon Dioxide 26.3 mEq/L (21.0-31.0) 10/30/16 05:24 Anion Gap 6.9 (7.0-16.0) L 10/30/16 05:24 BUN 11 mg/dL (7-25) 10/30/16 05:24 Creatinine 0.3 mg/dL (0.6-1.2) L 10/30/16 05:24 Est GFR ( Amer) TNP 10/30/16 05:24 Est GFR (Non-Af Amer) TNP 10/30/16 05:24 BUN/Creatinine Ratio 36.7 10/30/16 05:24 Glucose 106 mg/dL (70-105) H 10/30/16 05:24 POC Glucose 133 MG/DL (70 - 105) H 10/30/16 12:48 Hemoglobin A1c % 6.9 % (4.0-6.0) H 10/26/16 05:10 Calcium 7.7 mg/dL (8.6-10.3) L 10/30/16 05:24 Magnesium 1.9 mg/dL (1.9-2.7) 10/30/16 05:24 Total Bilirubin 0.4 mg/dL (0.3-1.0) 10/29/16 04:28 AST 28 U/L (13-39) 10/29/16 04:28 ALT 21 U/L (7-52) 10/29/16 04:28 Alkaline Phosphatase 80 U/L (34-104) 10/29/16 04:28 Troponin I 0.01 ng/mL (0.01-0.05) 10/24/16 19:45 C-Reactive Protein 15.1 mg/dL (0.0-0.9) H 10/30/16 05:24 Total Protein 6.1 gm/dL (6.0-8.3) 10/29/16 04:28 Albumin 2.5 gm/dL (3.7-5.3) L 10/29/16 04:28 Globulin 3.6 gm/dL 10/29/16 04:28 Albumin/Globulin Ratio 0.7 (1.0-1.8) L 10/29/16 04:28 TSH 1.78 uIU/ml (0.34-5.60) 10/25/16 05:07 Urine Source CLEAN C 10/24/16 20:49 Urine Color LILLIE 10/24/16 20:49 Urine Clarity CLOUDY (CLEAR) H 10/24/16 20:49 Urine pH 5.5 10/24/16 20:49 Ur Specific Graham 1.025 (1.005-1.030) 10/24/16 20:49 Urine Protein 30 mg/dL (NEGATIVE) H 10/24/16 20:49 Urine Glucose (UA) NEGATIVE mg/dL (NEGATIVE) 10/24/16 20:49 Urine Ketones 15 mg/dL (NEGATIVE) H 10/24/16 20:49 Urine Blood MODERATE (NEGATIVE) H 10/24/16 20:49 Urine Nitrate POSITIVE (NEGATIVE) H 10/24/16 20:49 Urine Bilirubin SMALL (NEGATIVE) H 10/24/16 20:49 Urine Urobilinogen 2.0 E.U./dL (0.2 - 1.0) 10/24/16 20:49 Ur Leukocyte Esterase SMALL (NEGATIVE) H 10/24/16 20:49 Urine RBC 10-25 /hpf (0-5) H 10/24/16 20:49 Urine WBC 6-10 /hpf (0-5) H 10/24/16 20:49 Ur Epithelial Cells MODERATE /lpf (FEW) 10/24/16 20:49 Urine Bacteria MANY /hpf (NONE SEEN) 10/24/16 20:49 Vancomycin Trough 2.9 ug/mL (10-20) L 10/29/16 09:20 - Physical Exam Vitals and I&O: Vital Signs Temp 97.7 F 10/30/16 11:16 Pulse 86 10/30/16 11:16 Resp 18 10/30/16 11:16 BP 124/52 10/30/16 11:16 Pulse Ox 97 10/30/16 11:16 Intake & Output 10/29/16 10/30/16 10/30/16 18:59 06:59 18:59 Intake Total 150 1985 100 Output Total 840 Balance 150 1145 100 Intake: Intake, IV Amount 150 1505 100 KCL 20mEq/100mL Premix 20 100 meq In 100 ml @ 50 mls/ hr IV Q2H [facility] Rx#: [id number] Potassium Chloride 10 meq 1005 In Sodium Chloride 0.9% 1,000 ml @ 75 mls/hr IV . [id number] [facility] Rx#:[id number] Vancomycin HCl 1 gm In 250 Sodium Chloride 0.9% 250 ml @ 165 mls/hr IV Q12H [facility] Rx#:[id number] cefTAZidime 1 gm In 50 50 Sodium Chloride 0.9% 50 ml @ 100 mls/hr IV Q8HR [facility] Rx#:[id number] metroNIDAZOLE 500mg/NS 100 200 100mL 500 mg In 100 ml @ 100 mls/hr IV Q8HR [facility] Rx #:[id number] Oral 480 Output: Urine 800 Other 40 Other: Stool Characteristics Soft Soft Active Medications: Current Medications Acetaminophen (Tylenol Extra Strength) 1,000 mg PO Q6H PRN PRN Reason: Pain or Fever >101 Stop: 12/24/16 01:50 Last Admin: 10/27/16 08:41 Dose: 1,000 mg Acetaminophen/Hydrocodone Bitart ([place] 5mg/325mg) 1 tab PO Q6H PRN PRN Reason: Severe Pain Stop: 12/24/16 01:46 Last Admin: 10/30/16 09:16 Dose: 1 tab Carbidopa/Levodopa (Sinemet 25mg-100 Mg) 1 tab PO BID [facility] Stop: 12/24/16 08:59 Last Admin: 10/30/16 09:16 Dose: 1 tab Donepezil HCl (Aricept) 5 mg PO DAILY [facility] Stop: 12/24/16 08:59 Last Admin: 10/30/16 09:16 Dose: 5 mg Fluoxetine HCl (Prozac) 20 mg PO BID [facility] PRN Reason: Protocol Stop: 12/24/16 08:59 Last Admin: 10/30/16 09:37 Dose: Not Given Potassium Chloride 10 meq/ (Sodium Chloride) 1,005 mls @ 75 mls/hr IV .[id number] [facility] Stop: 12/26/16 08:58 Last Admin: 10/29/16 23:31 Dose: 75 mls/hr Metronidazole (Flagyl) 500 mg in 100 mls @ 100 mls/hr IV Q8HR [facility] Stop: 12/27/16 12:59 Last Admin: 10/30/16 13:12 Dose: 100 mls/hr Ceftazidime 1 gm/ Sodium (Chloride) 50 mls @ 100 mls/hr IV Q8HR [facility] Stop: 12/28/16 12:59 Last Admin: 10/30/16 05:13 Dose: 100 mls/hr Vancomycin HCl 1 gm/ Sodium (Chloride) 250 mls @ 165 mls/hr IV Q12H [facility] Stop: 12/28/16 20:59 Last Admin: 10/30/16 10:12 Dose: 165 mls/hr Insulin Aspart (Novolog Insulin Sliding Scale) 0 units SUBQ ACHS [facility] PRN Reason: Protocol Stop: 12/24/16 07:29 Last Admin: 10/30/16 13:18 Dose: Not Given Ketorolac Tromethamine (Toradol) 30 mg IVP Q4HR PRN PRN Reason: BACK PAIN Stop: 12/24/16 14:51 Last Admin: 10/30/16 01:12 Dose: 30 mg Loperamide HCl (Imodium) 2 mg PO Q6H PRN PRN Reason: Diarrhea Stop: 12/24/16 01:46 Lorazepam (Ativan) 0.5 mg PO Q12H PRN; Protocol PRN Reason: Anxiety Stop: 12/24/16 01:46 Megestrol Acetate (Megace) 40 mg PO BID [facility] PRN Reason: Protocol Stop: 12/24/16 08:59 Last Admin: 10/30/16 09:17 Dose: 40 mg Memantine (Namenda) 5 mg PO BID [facility] Stop: 12/24/16 08:59 Last Admin: 10/30/16 09:16 Dose: 5 mg Mirtazapine (Remeron) 30 mg PO HS [facility] PRN Reason: Protocol Stop: 12/24/16 20:59 Last Admin: 10/29/16 20:29 Dose: 30 mg Miscellaneous (Vancomycin Iv Per Pharmacy) 1 ea [facility] PRN PRN PRN Reason: VANCOMYCIN Stop: 12/28/16 07:31 Ondansetron HCl (Zofran) 4 mg IV UD PRN PRN Reason: Nausea / Vomiting Stop: 12/27/16 09:13 Risperidone (Risperdal) 0.5 mg PO BID [facility] PRN Reason: Protocol Stop: 12/24/16 08:59 Last Admin: 10/30/16 09:16 Dose: 0.5 mg - Procedures Procedures: Procedures Procedure Code Date BYPASS ASCENDING COLON TO CUTANEOUS, OPEN APPROACH [id number] 10/24/16 COLOSTOMY 96978 10/24/16 EXCISION OF SACRUM, OPEN APPROACH [id number] 10/24/16 REMOVAL OF PRESSURE SORE 46890 10/24/16 Assessment/Plan - Problem List Patient Problems: All Active Problems COCCYX ULCER AND POOR ORAL INTAKE (Acute) Nutritional Asmnt/Malnutr-PDOC - Dietary Evaluation Malnutrition Findings (Please click <Entered> for more info): Nutritional Asmnt/Malnutrition Start: 10/25/16 12: 08 Text: Status: Complete Freq: Document 10/25/16 12:10 [email or web address] (Rec: 10/25/16 12:28 [id number] PERAZA- FN) Nutritional Asmnt/Malnutrition Patient General Information Nutritional Screening High Risk Screening Diagnosis (reason for visit) UTI Pertinent Medical Hx/Surgical Hx Dementia, parkinsons, diabetes Subjective Information Patient seen eating lunch tray at time of visit with help of TECHNICAL SERVICES REPRESENTATIVE. TECHNICAL SERVICES REPRESENTATIVE states patient needs full assistance with meals, and would benefit from chopped foods as she is having some swallowing difficulty. Swallow evaluation is ordered but has not yet been completed. Oral intake of breakfast and lunch >75%. Current Diet Order/ Nutrition Support 60 gm CCHO Patient / S.O Can't verbalize diet edu Pertinent Medications Novolog, imodium, megace Pertinent Labs (10/25) K 3.2, glucose 179, 172 , 216, albumin 3 Nutritional Hx/Data Height 12.7 cm Height (Calculated Centimeters) 12.7 Current Weight (lbs) 49.895 kg Weight (Calculated Kilograms) 49.9 Weight (Calculated Grams) 48091.2 [place] Body Weight 100 % [place] Body Weight 110 Weight Status Approriate GI Symptoms GI Symptoms None Food Allergies No Cultural/Ethnic/Mandaen Belief none indicated Usual diet at home regular Skin Integrity/Comment: Pressure area/ulceration, driss Moore Current %PO Good (75-100%) Estimated Nutritional Goals BEE in Kcals: Using Current wt Calories/Kcals/Kg 27-32 kcal/kg - history of poor po Kcals Calculated 1758-9695 kcal/day Protein: Using Current wt Protein g/k-1.2 gm/kg Protein Calculated 50-60 gm/day Fluid: ml 8264-5411 ml/day Nutritional Problem 2. Problem Problem Altered nutrition related lab values related to Etiology electrolyte imbalance and uncontrolled glucose as evidenced by Signs/Symptoms: K 3.2, Glucose 216 1. Problem Problem Inadequate oral intake related to Etiology possible poor appetite from UTI/dementia Signs/Symptoms: as evidenced by family states history of poor po x 3 weeks Intervention/Recommendation Recommendations by RD Protein supplementation Comments 1. Continue 60 gm CCHO diet as tolerated by patient, modify texture to chopped. Consider changing fluid consistency per speech therapy. 2. Continue Megace to improve appetite and oral intake. 3. Provide full assistance with meals and encourage oral intake. 4. If oral intake decreases, consider Boost Glucose Control TID with meals to supplement oral intake and provide a source of Potassium. Expected Outcomes/Goals Expected Outcomes/Goals oral intake adequate to meet > 75% of estimated needs, K and glucose normalizes, weight remains stable. Physician Parameters for PEM Serum Albumin (g/dl) 2.4 - 3.0 (Moderate)
--- NOTE | 2016-10-31 19:07 | Discharge Summary ---
ADMITTING DIAGNOSES: Lower back pain, unstageable decubitus coccygeal ulcer, urinary incontinence, leukocytosis, hyponatremia, urinary tract infection. SECONDARY DIAGNOSES: Includes advanced dementia, history of Parkinson's disease, history of poor p.o. intake/malnutrition, history of type 2 diabetes. DISCHARGE DIAGNOSES: Stage 4 decubitus ulcer status post incision and drainage with debridement; status post diverting colostomy; resolved leukocytosis; urinary tract infection; dehydration, improved; malnutrition; hyponatremia, resolved. CONSULTANTS: Dr. Junior, Surgery. MAJOR PROCEDURES: On 10/28/2016, the patient underwent: 1. Diverting colostomy. 2. Partial colon resection. 3. Lysis of dense adhesion. 4. Excisional debridement of sacral decubitus ulcer. 5. Application of wound VAC. MEDICATIONS ON TRANSFER: Tylenol 1000 mg p.r.n. q.6h for moderate pain, [place] 5/325 q.6 p.r.n. for severe pain, Sinemet 25/100 b.i.d., Rocephin 1 g q.24h, Aricept 5 mg every day, Prozac 20 mg b.i.d., insulin sliding scale, Toradol 30 mg IV push q.4 hours p.r.n. for moderate pain, Imodium 2 mg q.6 p.r.n. for diarrhea, Ativan 0.5 q.12h. p.r.n. for anxiety, Megace 40 mg b.i.d., Namenda 5 mg b.i.d., mirtazapine 30 mg at bedtime, vancomycin per pharmacy. BRIEF HOSPITAL COURSE: A 76-year-old lady with multiple medical problems including advanced dementia, Parkinson's, type 2 diabetes, who was admitted from [facility] after complaining of worsening lower back pain, nonspecific abdominal pain, and urinary incontinence. She had been admitted to this facility 2-3 weeks prior for failure to thrive and at that time her appetite improved with the implementation of Megace and Remeron. On admission, pertinent findings included a white count of 11.1, sodium of 131, and UA consistent with UTI. On physical exam, she also had a noticeable decubitus ulcer on the lower coccygeal area which was unstageable on admission. Wound care eval noticed that the wound was extensive and a surgical eval was therefore obtained. Family was advised on I and D debridement and diverting colostomy given the extent of her decubitus and her comorbidities. She underwent above-mentioned procedure without any complications and was transferred to the ICU postop. Postop, she did well with stable vital signs and her labs also remained stable postop. CONDITION ON TRANSFER: Stable. DISPOSITION: The patient was transferred to [facility] for further management and care. [facility]# [id number]
== END 2016-10-30 18:45 | DRG 981 ==
LOC: ER 15:01 → MSI 23:45 → ICU 10-28 09:45 → TELE 10-29 17:08
PROVIDERS: ADMIT Internal Medicine; ATTEND Internal Medicine
PROC: 0QB10ZZ Excision of Sacrum, Open Approach (ICD-10-PCS; principal; 2016-10-28)
PROC: 0D1K0Z4 Bypass Ascending Colon to Cutaneous, Open Approach (ICD-10-PCS; 2016-10-28)
PROC: 0DNW0ZZ Release Peritoneum, Open Approach (ICD-10-PCS; 2016-10-28)
PROC: 0DBK0ZZ Excision of Ascending Colon, Open Approach (ICD-10-PCS; 2016-10-28)
DX: L89.154 Pressure ulcer of sacral region, stage 4 (principal); E46 Unspecified protein-calorie malnutrition; F03.90 Unspecified dementia, unspecified severity, without behavioral disturbance, psychotic disturbance, mood disturbance, and anxiety; E87.1 Hypo-osmolality and hyponatremia; E86.0 Dehydration; N39.0 Urinary tract infection, site not specified; R15.9 Full incontinence of feces; G20 Parkinson's disease; E11.9 Type 2 diabetes mellitus without complications; R32 Unspecified urinary incontinence; F32.9 Major depressive disorder, single episode, unspecified; Z74.01 Bed confinement status; Z68.25 Body mass index [BMI] 25.0-25.9, adult
CPT/HCPCS: 36415-UA; 71010-TC; 80048-TC; 80053-TC; 80202-TC; 81001-TC; 82948-90; 83036-90; 83735-TC; 84134-90; 84443-TC; 84484-TC; 85007-TC; 85025-TC; 85027-TC; 85610-TC; 85652-TC; 86141-TC; 87070-90; 87075-90; 87205-90; 88304-TC; 88307-TC; 90782; 90799; 93005; 96374; 96375; J0696; J0713; J1815; J1885; J2001; J2250; J2704; J2710; J3370; J3475; J3480; J7030; J7040; X6024; X6258; Z7610